=== PATIENT | female | born 1975 | race Caucasian/White ===

== ENCOUNTER 2018-11-20 16:19 | Emergency (ER) | payer SELFPAY ==
[2018-11-20 17:39] LABS: Urine Blood NEGATIVE (NEG); Urine Glucose NEGATIVE (NEG); Urine Protein NEGATIVE (NEG); Urine Specific Gravity 1.015 (1.005-1.030)
[2018-11-20] MEDS ORDERED: DOXYCYCLINE 100 MG CAP PO ONE (17:44)
[2018-11-20] MEDS ORDERED: FAMOTIDINE 20 MG TAB ONE (17:51)
--- NOTE | 2018-11-20 18:00 | EDPHYS ---
Physician Documentation [facility] Name: Joe Mullins Age: 43 yrs Sex: Female : 1975 Arrival Date: 11/20/2018 Time: 16:22 Bed 19 Private MD: ED Physician Nitin Vazquez HPI: 11/20 17:11 This 43 yrs old Female presents to ER via Ambulatory with complaints of snw Blurred Vision, Back Pain. 17:11 The patient's problem is reported as weakness, that is generalized. Onset: The snw symptoms/episode began/occurred suddenly, 3 day(s) ago, and became persistent. Duration: The episode is continuous. Context: occurred beach, occurred while the patient was standing, Possible contributing factors include: "my autoimmune is messed up". The symptoms are alleviated by nothing. Severity of symptoms: At their worst the symptoms were moderate. Patient's baseline: The patient has a previous history of difficulty with taking any medications, Pt has seen her PCP and was given Bactroban. Pt states she can't get through antibiotic course. . It is unknown whether or not the patient has had similar symptoms in the past. The patient has been recently seen by a physician: the patient's primary care provider. Encouraged pt to see a Border Patrol Agent. 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 - Social history:: Smoking status: Patient uses tobacco products, smokes one-half pack cigarettes per day. - Ebola Screening: : No symptoms or risks identified at this time. ROS: 17:14 Neck: Negative for injury, pain, and swelling, Cardiovascular: Negative for chest pain, snw palpitations, and edema, Respiratory: Negative for shortness of breath, cough, wheezing, and pleuritic chest pain, Abdomen/GI: Negative for abdominal pain, nausea, vomiting, diarrhea, and constipation, Back: Negative for injury and pain, : Negative for injury, bleeding, discharge, and swelling. 17:14 Neuro: Negative for headache, weakness, numbness, tingling, and seizure, Psych: Negative for depression, anxiety, suicide ideation, homicidal ideation, and hallucinations. 17:14 Constitutional: Positive for body aches, fatigue, fever, malaise, poor PO intake. 17:14 Eyes: Positive for visual disturbance. 17:14 ENT: Positive for stung by "deer fly" at the beach. 17:14 MS/extremity: Positive for tenderness, of the everywhere. 17:14 Skin: Positive for "I'm on fire". Exam: 17:16 Constitutional: This is a well developed, well nourished patient who is awake, alert, snw and in no acute distress, excessively anxious Head/Face: Normocephalic, atraumatic. Eyes: Pupils equal round and reactive to light, extra-ocular motions intact. Lids and lashes normal. Conjunctiva and sclera are non-icteric and not injected. Cornea within normal limits. Periorbital areas with no swelling, redness, or edema. 17:16 Neck: Trachea midline, no thyromegaly or masses palpated, and no cervical lymphadenopathy. Supple, full range of motion without nuchal rigidity, or vertebral point tenderness. No Meningismus. Chest/axilla: Normal chest wall appearance and motion. Nontender with no deformity. No lesions are appreciated. Cardiovascular: Regular rate and rhythm with a normal S1 and S2. No gallops, murmurs, or rubs. Normal PMI, no JVD. No pulse deficits. Respiratory: Lungs have equal breath sounds bilaterally, clear to auscultation and percussion. No rales, rhonchi or wheezes noted. No increased work of breathing, no retractions or nasal flaring. Abdomen/GI: Soft, non-tender, with normal bowel sounds. No distension or tympany. No guarding or rebound. No evidence of tenderness throughout. Back: No spinal tenderness. No costovertebral tenderness. Full range of motion. Skin: Warm, dry with normal turgor. Normal color with no rashes, no lesions, and no evidence of cellulitis. MS/ Extremity: Pulses equal, no cyanosis. Neurovascular intact. Full, normal range of motion. Neuro: Awake and alert, GCS 15, oriented to person, place, time, and situation. Cranial nerves II-XII grossly intact. Motor strength 5/5 in all extremities. Sensory grossly intact. Cerebellar exam normal. Normal gait. 17:16 ENT: Nose: External nose: erythematous dot to tip of nose. 17:16 ENT: Ear canal(s): are normal, TM's: are normal, Mouth: is normal, Voice: is normal. 17:16 Psych: Behavior/mood is anxious, Affect is animated, Oriented to person, place, time. 18:01 CT study not indicated or reported. Reason for not performing CT: Pt does not need CT, snw no injury, no LOC, no fever, + severe anxiety Vital Signs: 16:25 BP 153 / 99; Pulse 120; Resp 16; Temp 97.8; Pulse Ox 99% on R/A; Pain 8/10; hb MDM: 17:00 Patient medically screened. snw 18:00 Data reviewed: vital signs, nurses notes. Data interpreted: Pulse oximetry: on room air snw is 99 %. Interpretation: normal. Counseling: I had a detailed discussion with the patient and/or guardian regarding: the historical points, exam findings, and any diagnostic results supporting the discharge/admit diagnosis. Special discussion: I have referred the patient to see his PCP for further evaluation of high blood pressure. Based on the history and exam findings, there is no indication for further emergent testing or inpatient evaluation. I discussed with the patient/guardian the need to see the primary care provider for further evaluation of the symptoms. 11/20 16:51 Order name: Flu; Complete Time: 17:57 snw 11/20 17:06 Order name: Urine Dipstick-Ancillary (obtain specimen); Complete Time: 17:20 snw 11/20 17:27 Order name: Urine Dipstick--Ancillary (enter results); Complete Time: 17:42 em1 Administered Medications: 17:37 Drug: Doxycycline 100 mg Route: PO; tw2 18:10 Follow up: Response: No adverse reaction tw2 17:43 Drug: Pepcid 20 mg Route: PO; tw2 18:10 Follow up: Response: No adverse reaction tw2 Disposition: 11/21 06:33 Co-signature as Attending Physician, Nitin Vazquez MD I agree with the assessment and kdr plan of care. Disposition: 11/20/18 17:59 Discharged to Home. Impression: Anxiety disorder, unspecified, Insect bite (nonvenomous) of nose. - Condition is Stable. - Discharge Instructions: Insect Bite, Hypertension, Generalized Anxiety Disorder. - Prescriptions for Doxycycline Hyclate 100 mg Oral Tablet - take 1 tablet by ORAL route every 12 hours; 20 tablet. Prednisone 20 mg Oral Tablet - take 2 tablet by ORAL route once daily for 5 days; 10 tablet. - Medication Reconciliation Form, Thank You Letter, Antibiotic Education, Prescription Opioid Use form. - Follow up: Private Physician; When: 1 - 2 days; Reason: Recheck today's complaints, Continuance of care, Re-evaluation by your physician. Follow up: Emergency Department; When: As needed; Reason: Worsening of condition. - Problem is an acute exacerbation. - Symptoms are unchanged. Signatures: Dispatcher [employer] EDMS Nitin Vazquez MD MD [facility] Sena Morocho, AGUSTÍN-C PROJECT CONTROL ANALYST-Imtiazw Leonora Ponce, ALYSIA RN Merna Aguirre RN RN tw2 Corrections: (The following items were deleted from the chart) 11/20 18:10 17:59 11/20/2018 17:59 Discharged to Home. Impression: Anxiety disorder, unspecified; tw2 Insect bite (nonvenomous) of nose. Condition is Stable. Forms are Medication Reconciliation Form, Thank You Letter, Antibiotic Education, Prescription Opioid Use. Follow up: Private Physician; When: 1 - 2 days; Reason: Recheck today's complaints, Continuance of care, Re-evaluation by your physician. Follow up: Emergency Department; When: As needed; Reason: Worsening of condition. Problem is an acute exacerbation. Symptoms are unchanged. snw
--- NOTE | 2018-11-20 18:00 | ER ---
Nurse's Notes [facility] Name: Joe Mullins Age: 43 yrs Sex: Female : 1975 Arrival Date: 11/20/2018 Time: 16:22 Bed 19 Private MD: Diagnosis: Anxiety disorder, unspecified;Insect bite (nonvenomous) of nose Presentation: 11/20 16:24 Presenting complaint: Headache, nausea, malaise, and blurred vision after being stung hb by deer fly on nose last Sunday. Transition of care: patient was not received from another setting of care. Onset of symptoms was November 16, 2018. Risk Assessment: Do you want to hurt yourself or someone else? Patient reports no desire to harm self or others. Care prior to arrival: None. 16:24 Method Of Arrival: Ambulatory hb 16:24 Acuity: MIKE 4 hb 16:30 Initial Sepsis Screen: Does the patient meet any 2 criteria? No. Patient's initial tw2 sepsis screen is negative. Does the patient have a suspected source of infection? No. Patient's initial sepsis screen is negative. 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 - Social history:: Smoking status: Patient uses tobacco products, smokes one-half pack cigarettes per day. - Ebola Screening: : No symptoms or risks identified at this time. Screenin:30 Abuse screen: Denies threats or abuse. Nutritional screening: No deficits noted. tw2 Tuberculosis screening: No symptoms or risk factors identified. Fall Risk None identified. Assessment: 16:45 General: Appears in no apparent distress. Behavior is calm, cooperative, appropriate tw2 for age, Smells of alcohol. Pain: Complains of pain in back. Neuro: Level of Consciousness is awake, alert, obeys commands, Oriented to person, place, time, situation. Cardiovascular: Patient's skin is warm and dry. Respiratory: Airway is patent Respiratory effort is even, unlabored, Respiratory pattern is regular, symmetrical. GI: No signs and/or symptoms were reported involving the gastrointestinal system. : No signs and/or symptoms were reported regarding the genitourinary system. EENT: No signs and/or symptoms were reported regarding the EENT system. Derm: No signs and/or symptoms reported regarding the dermatologic system. Musculoskeletal: Reports pain in back. 17:45 Reassessment: Spoke to patient upon request. AFter speaking with patient she was ss requesting steroids to go home with to "beef up" her immune system so her body can handle the antibiotics. 18:10 Reassessment: Patient appears in no apparent distress at this time. No changes from tw2 previously documented assessment. Patient and/or family updated on plan of care and expected duration. Pain level reassessed. Patient is alert, oriented x 3, equal unlabored respirations, skin warm/dry/pink. Vital Signs: 16:25 BP 153 / 99; Pulse 120; Resp 16; Temp 97.8; Pulse Ox 99% on R/A; Pain 8/10; hb ED Course: 16:22 Patient arrived in ED. mr 16:25 Triage completed. hb 16:27 Arm band placed on right wrist. hb 16:29 Merna Aguirre, RN is Primary Nurse. tw2 16:31 Bed in low position. Call light in reach. Pulse ox on. NIBP on. tw2 16:38 [facility] Moroch[facility]C [facility] snw 16:38 Nitin Vazquez MD is Attending Physician. snw 17:14 Flu Sent. tw2 18:10 No provider procedures requiring assistance completed. Patient did not have IV access tw2 during this emergency room visit. Administered Medications: 17:37 Drug: Doxycycline 100 mg Route: PO; tw2 18:10 Follow up: Response: No adverse reaction tw2 17:43 Drug: Pepcid 20 mg Route: PO; tw2 18:10 Follow up: Response: No adverse reaction tw2 Outcome: 17:59 Discharge ordered by . snw 18:10 Discharged to home ambulatory. tw2 18:10 Condition: stable 18:10 Discharge instructions given to patient, Instructed on discharge instructions, follow up and referral plans. medication usage, Demonstrated understanding of instructions, follow-up care, medications, Prescriptions given X 2. 18:10 Patient left the ED. tw2 Signatures: Sena Morocho FNP-C FNP-Csnw Daniella YanNenita castelan, RN RN ss Leonora Ponce RN RN Merna Aguirre RN RN tw2 Corrections: (The following items were deleted from the chart) 16:24 Acuity: MIKE 3 hb hb 16:24 Onset of symptoms was November 20, 2018 hb hb
== END 2018-11-20 18:10 | disposition home or self-care (01) ==
LOC: ER 16:19
DX: S00.36XA Insect bite (nonvenomous) of nose, initial encounter (principal); W57.XXXA Bitten or stung by nonvenomous insect and other nonvenomous arthropods, initial encounter; Y92.832 Beach as the place of occurrence of the external cause; F41.9 Anxiety disorder, unspecified; H53.8 Other visual disturbances; M54.9 Dorsalgia, unspecified; R53.1 Weakness; F17.210 Nicotine dependence, cigarettes, uncomplicated; Z88.1 Allergy status to other antibiotic agents; Z88.0 Allergy status to penicillin
CPT/HCPCS: 81003; 87804; 99284

== ENCOUNTER 2018-11-25 10:56 | Emergency (ER) | payer SELFPAY ==
--- OUTSIDE RECORDS SUMMARY | 2018-11-25 10:59 | XMS REPORT | Continuity of Care Document ---
:1975 Author Organization Interface Problems Problem Status Onset Classification Date Comments Source Date Reported SINUSITIS Active Condition 12/05/2013 Medical 4 Group Abnormal EKG Active Diagnosis 10/26/2016 Ahmed Ahmed Abn. Cardio Active Diagnosis 10/26/2016 Ahmed Study Ahmed Precordial Active Diagnosis 10/26/2016 Ahmed pain Ahmed Shortness of Active Diagnosis 10/26/2016 Ahmed breath med Medications Medication Details Route Status Patient Ordering Order Source Instructions Provider Date GABAPENTIN 300 3 tabs 3 Active MG CAPS times per 2013 Medical day Group BACLOFEN 10 MG 1 tab 3 Active TABS times 2013 Medical daily Group NEXIUM 40 MG 1 tab Active PACK twice 2013 Medical daily Group CHLORPROMAZINE 1 tab Active HCL 25 MG TABS twice 2013 Medical daily Group PROVENTIL HFA 2 puffs 4 Active 108 (90 BASE) times 2013 Medical MCG/ACT AERS daily Group TYLENOL 2 tab Active ARTHRITIS PAIN every 6hrs 2013 Medical 650 MG CR-TABS Group TRAMADOL HCL 50 1 tab Active MG TABS every 6hrs 2013 Medical prn pain Group PREDNISONE 20 MG Two tabs Active TABS PO qday 2013 Medical for 3 Group days, then one tab PO qday for 2 days Hydrocodone as direct NA Active 5 Ahmed [facility] Sulfasalazine 1 tablet Orally Active 500 MG Orally med [facility] every 6 hrs [facility] Levothroid 1 tablet Orally Active 25 MCG Orally med [facility] on an Once a day Ahmed empty stomach in the morning Gabapentin (PHN) 1 tablet Orally Active 800 Orally [facility] with Three times a Ahmed evening day meal one time Baclofen as Intrathecal Active 10 MG/20ML Ahmed [facility] directed Intrathecal [facility] Nexium 1 capsule Orally Active 40 MG Orally [facility] Once a day [facility] Ondansetron as Orally Active 8 MG Orally [facility] directed [facility] Allergies, Adverse Reactions, Alerts Substance Category Reaction Severity Reaction Status Date Comments Source type Reported PENICILLIN Drug PENICILLIN allergy 4 Medical Group pencillin Adverse Info Not Adverse Active [facility] Reaction Available Reaction 4 [facility] Immunizations Immunization Date Given Site Status Last Updated Comments Source Results Order Results Value Reference Date Interpretation Comments Source Name Range Vital Signs Vital Sign Value Date Comments Source [facility] Diastolic (mm Hg) 86 02/17[facility] Systolic (mm Hg) 132 02/17/2014 [facility] Height 63.5 11/17/2013 Medical Group Weight 137 11/17/2013 Medical Group Temperature Oral (F) 97.9 F 11/17/2013 Medical Group Systolic (mm Hg) 139 11/17/2013 Medical Group Diastolic (mm Hg) 89 11/17/2013 Medical Group Heart Rate 100 11/17/2013 Medical Group Encounters Location Location Encounter Encounter Reason Attending ADM DC Status Source Details Type Number For Provider Date Date Visit [facility] Lab Report [id number] Eliana 12/05 12/05 [place] 040 Андрей, /2013 Medical Medical MD Group [facility] - [place] Dereje f/u NST, [id number] 02/17 02/17 Dereje Reyez MD, Echo, -[id number] Dereje PA [place] [id number] Procedures Procedure Code Date Perfomer Comments Source colonoscopy 62402 11/20/2013 Complete [facility] Group smoking/tobacco 14 11/17/2013 DONE Medical cessation, patient Group education and counseling
--- OUTSIDE RECORDS SUMMARY | 2018-11-25 10:59 | XMS REPORT ---
:1975 [facility] Providers Name Role Phone Dereje Reyez Provider Role Unavailable Allergies, Adverse Reactions, Alerts Substance Reaction Event Type pencillin Info Not Available Drug Allergy Encounters Encounter Location Date f/u NST, [place], [place] Dereje Reyez [place], [place] February 17, 2014 Problems Problem Type Condition ICD-9 Code Onset Dates Condition Status Assessment Abnormal EKG 794.31 Active Assessment Abn. Cardio Study 794.39 Active Assessment Precordial pain 786.51 Active Assessment Shortness of breath 786.05 Active Medications Medication Code System Code Instructions Start End Status Dosage Date Date Hydrocodone Unknown 0 5 Active as direct Sulfasalazine MEDISPAN 23665-45 500 MG Orally Active 1 tablet 96-01 every 6 hrs Levothroid MEDISPAN 47538-01 25 MCG Orally Active 1 tablet on 20-00 Once a day an empty stomach in the morning Gabapentin (PHN) Unknown 0 800 Orally Active 1 tablet Three times a with day evening meal one time Baclofen MEDISPAN 12137-53 10 MG/20ML Active as directed 60-01 Intrathecal Nexium MEDISPAN 22008-81 40 MG Orally Active 1 capsule 40-31 Once a day Ondansetron MEDISPAN 74640-36 8 MG Orally Active as directed 02-03 Social History Social History Element Qualifiers Date Reported Smoking: . Are you a: Current smoker, How many packs per February 17, 2014 day? 1-2 packs Alcohol: . None February 17, 2014 Family history Qualifier Description Comment Date Reported Maternal Grand Mother heart attack February 17, 2014 Paternal Grand Mother alive Comment not available February 17, 2014 Siblings alive Comment not available February 17, 2014 Maternal Grand Father heart attack February 17, 2014 Children alive Comment not available February 17, 2014 Father alive cancer February 17, 2014 Paternal Grand Father Comment not available February 17, 2014 Mother alive heart disease, high blood pressure,, February 17, 2014 heart attack Vital Signs Date/Time: February 17, 2014 Weight 140 lbs Cardiac Monitoring Heart Rate 92 /min Blood Pressure Diastolic 86 mm Hg Blood Pressure Systolic 132 mm Hg Summary Purpose eClinicalWorks Submission
--- OUTSIDE RECORDS SUMMARY | 2018-11-25 10:59 | XMS REPORT ---
:1975 [facility] Address [address] [place] [address] Care Team Providers Name Role Phone Unavailable Unavailable Unavailable Payers Payer Name Policy Type Policy Number Effective Date Expiration Date Problems This patient has no known problems. Allergies, Adverse Reactions, Alerts Allergy Name Allergy Status Severity Reaction(s) Onset Inactive Treating Comments Type Date Date Clinician Fish Containing DA Active U 2017-09 Products 0-24 00:00: 00 levothyroxine DA Active U 2017-09 sodium 0-24 00:00: 00 ibuprofen DA Active U 2017-09 0-24 00:00: 00 azithromycin DA Active U 2017-09 0-24 00:00: 00 nut - DA Active U 2017-09 unspecified 0-24 00:00: 00 Penicillins DA Active SV 2017-09 0-24 00:00: 00 Penicillins DA Active SV 2010-09- 00:00: 00 Medications This patient has no known medications.
--- OUTSIDE RECORDS SUMMARY | 2018-11-25 10:59 | XMS REPORT | Continuity of Care Document ---
:1975 Author Organization [facility] Care Team Providers Name Role Phone MD Андрей, Eliana Unavailable Unavailable Insurance Providers Payer name Policy type / Policy ID Covered republican ID Policy Rizvi Coverage type [facility] Encounters Encounter Performer Location Date Lab Report Eliana Chiang MD [facility] [place] Dec 05, 2013 Allergies, Adverse Reactions, Alerts Type Substance Reaction Status Drug allergy PENICILLIN Hives Active Problems Problem Effective Dates Problem Status SINUSITIS Nov 17, 2013 Active Procedures Date Description Comments Nov 17, 2013 smoking status current every day smoker Nov 20, 2013 colonoscopy Complete Nov 17, 2013 smoking/tobacco cessation, patient education DONE and counseling Medications Medication Instructions Start Date Status GABAPENTIN 300 MG CAPS 3 tabs 3 times per day Nov 17, 2013 Active BACLOFEN 10 MG TABS 1 tab 3 times daily Nov 17, 2013 Active NEXIUM 40 MG PACK 1 tab twice daily Nov 17, 2013 Active CHLORPROMAZINE HCL 25 MG TABS 1 tab twice daily Nov 17, 2013 Active PROVENTIL HFA 108 (90 BASE) 2 puffs 4 times daily Nov 17, 2013 Active MCG/ACT AERS TYLENOL ARTHRITIS PAIN 650 MG 2 tab every 6hrs Nov 17, 2013 Active CR-TABS TRAMADOL HCL 50 MG TABS 1 tab every 6hrs prn pain Nov 17, 2013 Active PREDNISONE 20 MG TABS Two tabs PO qday for 3 days, Nov 17, 2013 Active then one tab PO qday for 2 days Vital Signs Date Description Test Result Nov 17, 2013 height E&M - 8302-2 HEIGHT 63.5 in Nov 17, 2013 weight E&M - 3141-9 WEIGHT 137 lb Nov 17, 2013 temperature E&M TEMPERATURE 97.9 deg f Nov 17, 2013 blood pressure, systolic - 8480-6 BP SYSTOLIC 139 mm Hg Nov 17, 2013 blood pressure, diastolic - 8462-4 BP DIASTOLIC 89 mm Hg Nov 17, 2013 pulse rate E&M - 8867-4 PULSE RATE 100 /min
--- OUTSIDE RECORDS SUMMARY | 2018-11-25 10:59 | XMS REPORT | Summary of Care ---
:1975 Author Name VERONICA COY M.D. Address Unavailable Unavailable , Care Team Providers Name Role Phone ANJU Granados, CAITIE Unavailable Unavailable VERONICA COY M.D. Unavailable Unavailable Caitie Rene MD Unavailable Unavailable HUE JARA MD Unavailable Unavailable Unavailable Unavailable Unavailable Functional Status Name Dates Details Functional status health issues are not documented Status: Name Dates Details Cognitive status health issues are not documented Status: Problems Name Dates Details GERD (gastroesophageal reflux disease) (530.81, K21.9) Status: Active Pain of left upper extremity (729.5, M79.602) Status: Active Pain, elbow joint (719.42, M25.529) Status: Active Lateral epicondylitis of left elbow (726.32, M77.12) Status: Active Thyroid nodule (241.0, E04.1) Status: Active Chronic viral hepatitis C (070.54, B18.2) Status: Active Myalgia (729.1, M79.1) Status: Active Pain, joint, multiple sites (719.49, M25.50) Status: Active Sorethroat (462, J02.9) Status: Active Nausea (787.02, R11.0) Status: Active Exposure to MRSA (V01.89, Z20.818) Status: Active Viral URI with cough (465.9, J06.9) Status: Active Hypothyroidism (244.9, E03.9) Status: Active Medications Name Dates Details NexIUM 20 MG Oral Capsule Delayed Release Refills: 0 Active Multivitamins Oral Capsule Refills: 0 Active Gabapentin 300 MG Oral Capsule takes 600 mg hs Refills: 0 Active Tirosint 50 MCG Oral Capsule TAKE 1 CAPSULE DAILY Quantity: 90 Refills: 1 VERONICA CYO M.D. Start : 13-Dec-2016 Active Albuterol Sulfate HFA AERS Refills: 0 Active Symbicort AERO Refills: 0 Active MethylPREDNISolone 4 MG Oral Tablet Therapy Pack TAKE DIRECTED Quantity: 1 Refills: 0 RENE M.D., TREPANJEET Start : 16-Mar-2017 Active 21 Tablet Pack Cyclobenzaprine HCl - 10 MG Oral Tablet TAKE 1 TABLET BEDTIME po,donot drive or operate machinery Quantity: 30 Refills: 0 RENE M.D., TREPANJEET Start : 16-Mar-2017 Active Ondansetron HCl - 8 MG Oral Tablet TAKE 1 TABLET EVERY 8 HOURS PRN nausea/vomiting Quantity: 20 Refills: 0 RENE M.D., TREPANJEET Start : 07-May-2017 Active Allergies and Adverse Reactions Name Dates Details Advil TABS (Allergy) Status: Active Amitriptyline HCl TABS (Allergy) Status: Active Ibuprofen TABS (Allergy) Status: Active levothyroxine (Allergy) Status: Active Penicillins (Allergy) Status: Active Zithromax PACK (Allergy) Status: Active Almonds (Allergy) Status: Active Seafood (Allergy) Status: Active Shellfish (Allergy) Status: Active Shrimp (Allergy) Status: Active Past Medical History Name Dates Details Hypothyroidism (244.9, E03.9) Status: Active Procedures Procedure Dates Details History of Section Completed History of Exploratory Laparotomy Completed History of Total Abdominal Hysterectomy Completed History of Salpingo-oophorectomy Bilateral Completed History of Neck Surgery Completed Immunization Name Dates Details Immunizations not documented Family History Name Dates Details Family history of hypertension (V17.49, Z82.49) Status: Active Family history of diabetes mellitus (V18.0, Z83.3) Status: Active Family history of Heart abnormality (746.9, Q24.9) Status: Active Name Dates Details Family history of skin cancer (V16.8, Z80.8) Status: Active Social History Name Dates Details - Status: Name Dates Details Current every day smoker Vital Signs Date Test Result Details No Known Vitals to report Results Date Description Value Details [id number] [[facility]] T3, FREE T3 Free 2.50 pg/ml Range: 2.18-3.98 [id number] [[facility]] T4, FREE T4 Free 1.04 ng/dl Range: 0.76-1.46 [id number] [[facility]] TSH, 3RD GENERATION TSH 2.100 {uIU/ml} Range: 0.360-3.740 Plan of Care Name Dates Details Planned Observations Planned Goals not documented Planned Encounters Appointment; VERONICA COY M.D. On: 07-Nov-2017 15:20 Interventions Provided Discussion/Summary1.Hypothyroidism ( Juan R's)Target TSH <2.5 explainedIncrease Tirosint 50 mcg po daily (could not tolerate generic levothyroxine)Check TSH, FT4, FT3 in 2 monthsFU in 2 months2. Hx of thyroid noduleRepeat USG thyroid in 10/2016, no nodule identified3. Headache most likely tension headache, not related to her thyroid status. Advised to FU with PCP. Instructions Name Dates Details Instructions not documented Encounters Appointment; RUDOLPH WHITFIELD M.D. On: 24-Oct-2016 13:00 Encounter Diagnosis: Problem not documented Appointment; RUDOLPH WHITFIELD M.D. On: 18-Jan-2017 15:30 Encounter Diagnosis: Problem not documented Appointment; RUDOLPH WHITFIELD M.D. On: 22-Feb-2017 13:40 Encounter Diagnosis: Problem not documented Appointment; RUDOLPH WHITFIELD M.D. On: 22-Feb-2017 13:45 Encounter Diagnosis: Problem not documented Appointment; RUDOLPH WHITFIELD M.D. On: 06-Mar-2017 9:45 Encounter Diagnosis: Problem not documented Appointment; CAITIE RENE M.D. On: 16-Mar-2017 15:00 Encounter Diagnosis: Problem not documented Appointment; VERONICA COY M.D. On: 16-Apr-2017 11:20 Encounter Diagnosis: Problem not documented Appointment; CAITIE RENE M.D. On: 07-May-2017 15:20 Encounter Diagnosis: Problem not documented Appointment; VERONICA COY M.D. On: 30-Jul-2017 10:40 Encounter Diagnosis: Problem not documented Appointment; VERONICA COY M.D. On: 07-Nov-2017 15:20 Encounter Diagnosis: Problem not documented
[2018-11-25] MEDS ORDERED: NA CHLORIDE 0.9% 100 ML IV ONE (12:30)
[2018-11-25] MEDS ORDERED: DEXAMETHASONE 4 MG/ML VIAL ONE (12:30)
[2018-11-25] MEDS ORDERED: IPRATROPIUM BROM 0.5MG/2.5ML ONE (12:30)
[2018-11-25] MEDS ORDERED: ALBUTEROL 2.5 MG/3 ML NEB SOL ONE (12:30)
[2018-11-25 13:11] LABS: Absolute Lymphocytes (CBC) 4.1 K/uL (0.7-4.9); Absolute Monocytes 0.9 K/uL (0.1-1.3); Absolute Neutrophil 10.3 K/uL (1.8-8.0); Basophils % 1.1 % (0-1.3); Eosinophils % 0.3 % (0-4.4); Hematocrit 44.8 % (36.0-45.0); Lymphocytes % 26.6 % (15.3-44.8); MPV 12.4 fL (7.6-11.3); Monocytes % 5.6 % (3.3-12.3); RBC Red Blood Cell Count 4.84 M/uL (3.86-4.86)
[2018-11-25 13:23] LABS: Potassium 3.3 mmol/L (3.5-5.1)
--- NOTE | 2018-11-25 13:37 | RAD REPORT ---
EXAM DESCRIPTION: Lesa Finn (2 Views)11/25/2018 1:32 pm CLINICAL HISTORY: Cough COMPARISON: None FINDINGS: The lungs appear clear of acute infiltrate. The heart is normal size IMPRESSION: No acute abnormalities displayed
--- NOTE | 2018-11-25 14:10 | RAD REPORT ---
EXAM DESCRIPTION: RAD - Neck Soft Tissue - 11/25/2018 1:35 pm CLINICAL HISTORY: Congestion FINDINGS: the visualized airway appears unremarkable. Aryepiglottic folds normal Prevertebral soft tissues are unremarkable. Spondylosis involves lower cervical spine.
[2018-11-25] MEDS ORDERED: KETOROLAC 30 MG/ML INJ ONE (14:28)
--- NOTE | 2018-11-25 14:41 | EDPHYS ---
Physician Documentation [facility] Name: Joe Mullins Age: 43 yrs Sex: Female : 1975 Arrival Date: 11/25/2018 Time: 11:03 Bed 8 Private MD: ED Physician Aquiles Dickinson HPI: 11/25 16:51 This 43 yrs old Female presents to ER via Ambulatory with complaints of gs Weakness. 16:51 The patient presents to the emergency department with weakness of the entire body, gs generalized weakness. Onset: The symptoms/episode began/occurred gradually. 16:52 Onset: The symptoms/episode began/occurred 1.5 week(s) ago. Associated signs and gs symptoms: Pertinent positives: headache, nausea, paresthesias. Severity of symptoms: At their worst the symptoms were moderate in the emergency department the symptoms are unchanged. Current symptoms: visual disturbance. The patient has experienced similar episodes in the past, several times. The patient has been recently seen at the [facility] Emergency Department, last week. 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 - Social history:: Smoking status: Patient uses tobacco products, smokes one-half pack cigarettes per day. - Ebola Screening: : No symptoms or risks identified at this time. ROS: 16:52 All other systems are negative. gs Exam: 16:52 Head/Face: Normocephalic, atraumatic. Eyes: Pupils equal round and reactive to light, gs extra-ocular motions intact. Lids and lashes normal. Conjunctiva and sclera are non-icteric and not injected. Cornea within normal limits. Periorbital areas with no swelling, redness, or edema. ENT: Nares patent. No nasal discharge, no septal abnormalities noted. Tympanic membranes are normal and external auditory canals are clear. Oropharynx with no redness, swelling, or masses, exudates, or evidence of obstruction, uvula midline. Mucous membranes moist. Neck: Trachea midline, no thyromegaly or masses palpated, and no cervical lymphadenopathy. Supple, full range of motion without nuchal rigidity, or vertebral point tenderness. No Meningismus. Chest/axilla: Normal chest wall appearance and motion. Nontender with no deformity. No lesions are appreciated. Cardiovascular: Regular rate and rhythm with a normal S1 and S2. No gallops, murmurs, or rubs. Normal PMI, no JVD. No pulse deficits. Abdomen/GI: Soft, non-tender, with normal bowel sounds. No distension or tympany. No guarding or rebound. No evidence of tenderness throughout. Back: No spinal tenderness. No costovertebral tenderness. Full range of motion. Skin: Warm, dry with normal turgor. Normal color with no rashes, no lesions, and no evidence of cellulitis. MS/ Extremity: Pulses equal, no cyanosis. Neurovascular intact. Full, normal range of motion. Neuro: Awake and alert, GCS 15, oriented to person, place, time, and situation. Cranial nerves II-XII grossly intact. Motor strength 5/5 in all extremities. Sensory grossly intact. Cerebellar exam normal. Normal gait. 16:52 Constitutional: The patient appears alert, awake, anxious. 16:52 Respiratory: the patient does not display signs of respiratory distress, Respirations: normal, symetrical, Breath sounds: wheezing: expiratory that is mild, is heard diffusely. Vital Signs: 11:27 BP 150 / 95; Pulse 80; Resp 18 S; Temp 98.4(TE); Pulse Ox 99% on R/A; Weight 55.34 kg aa5 (R); Height 5 ft. 3 in. (160.02 cm) (R); Pain 8/10; 12:40 BP 146 / 78; Pulse 84; Pulse Ox 98% on R/A; ch 14:20 BP 136 / 89; Pulse 78; Resp 16; Temp 98.8; Pulse Ox 98% on R/A; Pain 9/10; ch 15:45 BP 147 / 86; Pulse 76; Resp 15; Temp 97.9; Pulse Ox 99% on R/A; Pain 6/10; ch 11:27 Body Mass Index 21.61 (55.34 kg, 160.02 cm) aa5 MDM: 12:14 Patient medically screened. 16:52 Data reviewed: vital signs, nurses notes. Counseling: I had a detailed discussion with the patient and/or guardian regarding: the historical points, exam findings, and any diagnostic results supporting the discharge/admit diagnosis, lab results, the need for outpatient follow up. Response to treatment: the patient's symptoms have markedly improved after treatment, the patient's symptoms have resolved after treatment, and as a result, I will discharge patient. 11/25 12:15 Order name: CBC with Diff; Complete Time: 13:58 11/25 12:15 Order name: Basic Metabolic Panel; Complete Time: 13:58 11/25 12:15 Order name: XRAY Chest Pa And Lat (2 Views); Complete Time: 13:58 11/25 12:15 Order name: Neck Soft Tissue XRAY; Complete Time: 14:11 Administered Medications: 12:25 Drug: Albuterol 2.5 mg Route: Inhalation; 16:18 Follow up: Response: No adverse reaction; Marked relief of symptoms ch 12:25 Drug: AtroVENT Aerosol 0.5 mg Route: Inhalation; ch 16:18 Follow up: Response: No adverse reaction; Marked relief of symptoms 12:40 Drug: Decadron - Dexamethasone 10 mg Route: IVP; Site: left upper arm; 13:00 Follow up: Response: No adverse reaction ch 14:15 Drug: TORadol 15 mg Route: IVP; Site: left antecubital; 15:00 Follow up: Response: No adverse reaction; No change in condition Disposition: 11/25/18 14:41 Discharged to Home. Impression: Insect bite (nonvenomous) of other part of head, Fibromyalgia. - Condition is Stable. - Discharge Instructions: Myofascial Pain Syndrome and Fibromyalgia. - Prescriptions for Tylenol- Codeine #4 300-60 mg Oral Tablet - take 1 tablet by ORAL route every 6 hours As needed; 10 tablet. - Medication Reconciliation Form, Thank You Letter, Antibiotic Education, Prescription Opioid Use form. - Follow up: Private Physician; When: 2 - 3 days; Reason: Re-evaluation by your physician. Follow up: Pasquale Hernandez MD; When: 2 - 3 days; Reason: Re-evaluation by your physician. Signatures: Dispatcher [employer] Denisa Overton RN ALYSIA Sulema Montgomery RN RN aa5 Nenita Leal RN RN Aquiles Dickinson MD MD gs Corrections: (The following items were deleted from the chart) 14:41 14:41 11/25/2018 14:41 Discharged to Home. Impression: Insect bite (nonvenomous) of gs other part of head; Fibromyalgia. Condition is Stable. Forms are Medication Reconciliation Form, Thank You Letter, Antibiotic Education, Prescription Opioid Use. Follow up: Private Physician; When: 2 - 3 days; Reason: Re-evaluation by your physician. 15:54 14:41 11/25/2018 14:41 Discharged to Home. Impression: Insect bite (nonvenomous) of ch other part of head; Fibromyalgia. Condition is Stable. Discharge Instructions: Myofascial Pain Syndrome and Fibromyalgia. Prescriptions for Tylenol-Codeine #4 300-60 mg Oral Tablet - take 1 tablet by ORAL route every 6 hours As needed; 10 tablet. and Forms are Medication Reconciliation Form, Thank You Letter, Antibiotic Education, Prescription Opioid Use. Follow up: Private Physician; When: 2 - 3 days; Reason: Re-evaluation by your physician. Follow up: Pasquale Hernandez; When: 2 - 3 days; Reason: Re-evaluation by your physician.
--- NOTE | 2018-11-25 14:41 | ER ---
Nurse's Notes [facility] Name: Joe Mullins Age: 43 yrs Sex: Female : 1975 Arrival Date: 11/25/2018 Time: 11:03 Bed 8 Private MD: Diagnosis: Insect bite (nonvenomous) of other part of head;Fibromyalgia Presentation: 11/25 11:21 Presenting complaint: Patient states: "I was bitten by a deer fly on my nose and aa5 prescribed Bactrim and later I came here and was prescribed Doxycycline and Prednisone". Pt reports she is still taking the doxycycline and she completed the prednisone. Pt states "all my glands in my body hurt and I feel weak". Pt also c/o nausea. Pt states "the deer fly bite is attacking my body and all this symptoms are caused by it". Transition of care: patient was not received from another setting of care. Onset of symptoms was November 2018. Risk Assessment: Do you want to hurt yourself or someone else? Patient reports no desire to harm self or others. Initial Sepsis Screen: Does the patient meet any 2 criteria? No. Patient's initial sepsis screen is negative. Does the patient have a suspected source of infection? No. Patient's initial sepsis screen is negative. Care prior to arrival: None. 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 - Social history:: Smoking status: Patient uses tobacco products, smokes one-half pack cigarettes per day. - Ebola Screening: : No symptoms or risks identified at this time. Screenin:45 Abuse screen: Denies threats or abuse. Denies injuries from another. Nutritional ch screening: No deficits noted. Tuberculosis screening: No symptoms or risk factors identified. Fall Risk None identified. Assessment: 12:20 Neuro: Level of Consciousness is awake, alert, obeys commands, Oriented to person, ch place, time, situation, Sales Donor Recruitment Representative are equal bilaterally Moves all extremities. Full function Gait is steady, Speech is normal, Facial symmetry appears normal, Facial symmetry: tongue is midline, Pupils are PERRLA, Reports pt states she is having generalized weakness and tingling all over body. states her blood is poisoned, and she has been contaminated by the bit of a deer fly that fed off of a decayed contaminated deer 8 days ago. pt states we are not taking her seriously, and appears anxious and agitated in room. . Respiratory: Airway is patent Trachea midline Respiratory effort is even, unlabored, Breath sounds are clear bilaterally. pt is having upper airway "tightness", and having coarse breathing when staff is in room. when staff is not in room, pt has quiet unlabored breathing, and is on her phone, resting quietly. GI: No signs and/or symptoms were reported involving the gastrointestinal system. Derm: Skin is pink, warm \\T\\ dry. no blisters or wounds noted at this time. 14:20 Reassessment: Patient is alert, oriented x 3, equal unlabored respirations, skin ch warm/dry/pink. erp in room discussing plan of care with pt and negative results. pt is tear full in room and insisting she is having an inflammatory reaction, and needs antiinflammatory. pt states she knows her body and is in some of the worst pain of her life, her blood must be poisoned. erp dicusses results with pt and follow up care. pt insists she needs pain medication. General: Appears in no apparent distress. uncomfortable, Behavior is agitated, anxious. Pain: Complains of pain in generalized, also in throat Pain currently is 8 out of 10 on a pain scale. Cardiovascular: Heart tones S1 S2 present Capillary refill < 3 seconds in bilateral fingers toes Clubbing of nail beds is absent Rhythm is regular. 15:30 Reassessment: Patient appears in no apparent distress at this time. Patient is alert, ch oriented x 3, equal unlabored respirations, skin warm/dry/pink. 15:45 Reassessment: Patient appears in no apparent distress at this time. Patient is alert, ch oriented x 3, equal unlabored respirations, skin warm/dry/pink. pt states she called her hand winder and he said doxycycline is "deactivated" by tylenol with codeine. pt requests tramadol . pt refuses to leave until she has her orders. pt dx explained by me again, [facility], follow up. pt verb understanding, states she is grateful for our care, pt given copy of labs. Vital Signs: 11:27 BP 150 / 95; Pulse 80; Resp 18 S; Temp 98.4(TE); Pulse Ox 99% on R/A; Weight 55.34 kg aa5 (R); Height 5 ft. 3 in. (160.02 cm) (R); Pain 8/10; 12:40 BP 146 / 78; Pulse 84; Pulse Ox 98% on R/A; ch 14:20 BP 136 / 89; Pulse 78; Resp 16; Temp 98.8; Pulse Ox 98% on R/A; Pain 9/10; ch 15:45 BP 147 / 86; Pulse 76; Resp 15; Temp 97.9; Pulse Ox 99% on R/A; Pain 6/10; ch 11:27 Body Mass Index 21.61 (55.34 kg, 160.02 cm) aa5 ED Course: 11:03 Patient arrived in ED. mr 11:21 Arm band placed on. aa5 11:25 Triage completed. aa5 11:30 Patient has correct armband on for positive identification. Placed in gown. Bed in low ch position. Call light in reach. Side rails up X 1. Pulse ox on. NIBP on. 11:30 Warm blanket given. ch 12:07 Aquiles Dickinson MD is Attending Physician. gs 12:35 Inserted saline lock: 22 gauge in left upper arm, using aseptic technique. Missed ch attempt(s): 20 gauge in right antecubital area. Bleeding controlled, band aid applied, catheter tip intact. 12:39 Denisa Hawthorne, ALYSIA is Primary Nurse. ch 13:20 Patient moved to radiology via wheelchair. jb2 13:32 X-ray completed. Patient tolerated procedure well. Patient moved back from radiology. jb2 13:33 Neck Soft Tissue XRAY In Process Unspecified. EDMS 13:33 XRAY Chest Pa And Lat (2 Views) In Process Unspecified. EDMS 14:41 David, Pasquale, MD is Referral Physician. gs 15:30 No provider procedures requiring assistance completed. IV discontinued, intact, ch bleeding controlled, No redness/swelling at site. Pressure dressing applied. Administered Medications: 12:25 Drug: Albuterol 2.5 mg Route: Inhalation; ch 16:18 Follow up: Response: No adverse reaction; Marked relief of symptoms ch 12:25 Drug: AtroVENT Aerosol 0.5 mg Route: Inhalation; ch 16:18 Follow up: Response: No adverse reaction; Marked relief of symptoms ch 12:40 Drug: Decadron - Dexamethasone 10 mg Route: IVP; Site: left upper arm; ch 13:00 Follow up: Response: No adverse reaction ch 14:15 Drug: TORadol 15 mg Route: IVP; Site: left antecubital; 15:00 Follow up: Response: No adverse reaction; No change in condition ch Outcome: 14:41 Discharge ordered by MD. 15:52 Discharged to home ambulatory. 15:52 Condition: improved 15:52 Discharge instructions given to patient, Instructed on discharge instructions, follow up and referral plans. medication usage, Demonstrated understanding of instructions, follow-up care, medications, Prescriptions given X 1. 15:54 Patient left the ED. Signatures: Dispatcher [employer] EDMS Denisa Hawthorne RN RN Yan Daniella Rivera, Sulema Colunga RN RN aa5 Smirch, Shelby, RN RN ss Starr, Gregory, MD MD Corrections: (The following items were deleted from the chart) 11:29 11:21 Presenting complaint: Patient states: "I was bitten by a deer fly and prescribed aa5 Bactrim and later I came here and was prescribed Doxycycline and Prednisone". Pt reports she is still taking the doxycycline and she completed the prednisone. Pt states "all my glands in my body hurt and I feel weak". Pt also c/o nausea. aa5 16:19 14:20 Reassessment: Patient is alert/active/playful, equal unlabored respirations, skin ch warm/dry/pink. erp in room discussing plan of care with pt and negative results. pt is tear full in room and insisting she is having an inflammatory reaction, and needs antiinflammatory. pt states she knows her body and is in some of the worst pain of her life, her blood must be poisoned. erp dicusses results with pt and follow up care. pt insists she needs pain medication. 16:19 16:18 Reassessment: Patient appears in no apparent distress at this time. Patient is ch alert, oriented x 3, equal unlabored respirations, skin warm/dry/pink. ch 19:16 16:31 Reassessment: Patient appears in no apparent distress at this time. pt finished ch food, took pain pill, attempting to call report now. 19:17 16:30 Reassessment: Patient appears in no apparent distress at this time. Patient is ch alert, oriented x 3, equal unlabored respirations, skin warm/dry/pink. pt states she called her hand winder and he said doxycycline is "deactivated" by tylenol with codeine. pt requests tramadol .
== END 2018-11-25 15:54 | disposition home or self-care (01) ==
LOC: ER 10:56
DX: S00.96XA Insect bite (nonvenomous) of unspecified part of head, initial encounter (principal); W57.XXXA Bitten or stung by nonvenomous insect and other nonvenomous arthropods, initial encounter; M79.7 Fibromyalgia; R53.1 Weakness; B19.20 Unspecified viral hepatitis C without hepatic coma; Z88.1 Allergy status to other antibiotic agents; Z88.0 Allergy status to penicillin; Z88.8 Allergy status to other drugs, medicaments and biological substances; F17.210 Nicotine dependence, cigarettes, uncomplicated
CPT/HCPCS: 36415; 70360; 71046; 80048; 85025; 99284

== ENCOUNTER 2021-06-27 12:18 | Emergency (ER) | payer OTHER, SELFPAY ==
[2021-06-27 13:20] LABS: Absolute Lymphocytes (CBC) 2.3 K/uL (0.7-4.9); Basophils % 1.1 % (0-1.3); Hematocrit 40.9 % (36.0-45.0); Lymphocytes % 36.8 % (15.3-44.8); MPV 10.9 fL (7.6-11.3); RBC Red Blood Cell Count 4.44 M/uL (3.86-4.86)
[2021-06-27 13:23] LABS: Protime INR 1.01
[2021-06-27 13:30] LABS: BUN Blood Urea Nitrogen 14 mg/dL (7-18); Bicarbonate 26 mmol/L (21-32); Glucose Level 101 mg/dL (74-106); Potassium 3.8 mmol/L (3.5-5.1); Sodium Level 141 mmol/L (136-145)
[2021-06-27] MEDS ORDERED: MAGNES/ALUMIN/SIMET 30ML UCUP ONE (13:51)
[2021-06-27] MEDS ORDERED: LIDOCAINE VISCOUS 2% SOLN 15 ML UDC ONE (13:51)
--- NOTE | 2021-06-27 13:52 | RAD REPORT ---
EXAM DESCRIPTION: CTAbdomen Pelvis Wo Contrast - 06/27/2021 1:40 pm CLINICAL HISTORY: . rectal bleeding, ;Abd pain COMPARISON: CT-STONE PROTOCOL dated 04/27/2008 TECHNIQUE: All CT scans are performed using dose optimization technique as appropriate and may inclu de automated exposure control or mA/KV adjustment according to patient size. FINDINGS: Lower chest: No acute abnormality. Liver: No acute abnormality or suspicious lesions. Biliary: No biliary ductal dilatation. Cholecystectomy Stomach: No significant focal abnormality. Duodenum: No significant focal abnormality. Pancreas: No significant abnormality. Spleen: No significant abnormality. Adrenal: No suspicious lesions. Kidney/ureter: No hydronephrosis. No renal calculi. Retroperitoneum: No retroperitoneal adenopathy. Vascular: No aneurysm. Mild atherosclerosis . Bowel: No significant focal abnormality. Peritoneum: No ascites or free air. Bladder: Grossly unremarkable. Reproductive: No adnexal masses. Hysterectomy Bones: No acute fracture. Other: n/a IMPRESSION: No acute intra-abdominal or pelvic finding.
--- NOTE | 2021-06-27 14:14 | EDPHYS ---
Physician Documentation [facility] Name: Joe Mullins Age: 45 yrs Sex: Female : 1975 Arrival Date: 06/27/2021 Time: 12:23 Bed 19 Private MD: ED Physician Ramiro Martinez HPI: 06/27 12:46 This 45 yrs old Female presents to ER via Ambulatory with complaints of rn Rectal Bleeding, Abdominal Pain. 12:46 The patient presents to the emergency department with bleeding from the rectum/anus, rn that is mild. Onset: The symptoms/episode began/occurred 2 month(s) ago. Context: the patient has no known special context relating to the rectal area complaint(s). Modifying factors: The symptoms are alleviated by nothing, The symptoms are aggravated by bowel movement. Associate signs and symptoms: Pertinent positives: abdominal pain in the abdomen diffusely, lower GI bleeding, bright red. The patient has experienced similar episodes in the past. The patient has not recently seen a physician. Patient reports at least 2 months of diffuse abdominal pain and mild bright red rectal bleeding. Denies any fever or trauma. States this is happened before and put on antacids with improvement. States did not want to alarm anybody so not ago this long. Reports only happens with bowel movements and does not have bowel movements every day. Denies hematemesis. Denies taking blood thinners. Has not tried any [id number] medication. States he does not have any money for any medication or follow-up so came here.. Historical: - Allergies: 12:27 Diflucan; hb 12:27 Levothyroxine Sodium; hb 12:27 PENICILLINS; hb 12:27 Zithromax; hb 13:00 Iodinated Contrast Media - IV Dye; tc5 - PMHx: 12:27 Asthma; HEP C; Thyroid problem; hb - Immunization history:: Client reports having NOT received the Covid vaccine. - Social history:: Smoking status: Patient reports the use of cigarette tobacco products, smokes one-half pack cigarettes per day. - Family history:: not pertinent. - Hospitalizations: : No recent hospitalization is reported. ROS: 12:46 Constitutional: Negative for fever, chills, and weight loss, Eyes: Negative for injury, rn pain, redness, and discharge, Neck: Negative for injury, pain, and swelling, Cardiovascular: Negative for chest pain, palpitations, and edema, Respiratory: Negative for shortness of breath, cough, wheezing, and pleuritic chest pain, Abdomen/GI: Positive for abdominal pain and bright red blood in stool Back: Negative for injury and pain, : Negative for injury, bleeding, discharge, and swelling, MS/Extremity: Negative for injury and deformity, Skin: Negative for injury, rash, and discoloration, Neuro: Negative for headache, weakness, numbness, tingling, and seizure. Exam: 12:46 Constitutional: This is a well developed, well nourished patient who is awake, alert, rn and in no acute distress. Head/Face: Normocephalic, atraumatic. Eyes: Conjunctiva normal. Periorbital areas with no swelling, redness, or edema. Cardiovascular: Regular rate and rhythm. No pulse deficits. Respiratory: No increased work of breathing, no retractions or nasal flaring. Abdomen/GI: Soft, mild tenderness in all 4 quadrants, no masses, no peritoneal signs Skin: Warm, dry MS/ Extremity: Pulses equal, no cyanosis. Neuro: Awake and alert, GCS 15 Vital Signs: 12:25 BP 137 / 78; Pulse 90; Resp 16; Temp 97.0; Pulse Ox 99% on R/A; Weight 57.61 kg; Height hb 5 ft. 3 in. (160.02 cm); Pain 8/10; 14:57 BP 137 / 79; Pulse 65; Resp 18; Pulse Ox 97% ; tc5 12:25 Body Mass Index 22.50 (57.61 kg, 160.02 cm) hb MDM: 12:28 Patient medically screened. rn 14:12 Differential diagnosis: Abdominal pain, acid reflux, diverticulitis. Data reviewed: rn vital signs, nurses notes, lab test result(s), radiologic studies, CT scan, and as a result, I will discharge patient. Counseling: I had a detailed discussion with the patient and/or guardian regarding: the historical points, exam findings, and any diagnostic results supporting the discharge/admit diagnosis, lab results, radiology results, the need for outpatient follow up, to return to the emergency department if symptoms worsen or persist or if there are any questions or concerns that arise at home. Special discussion: Based on the patient's Hx, exam, and Dx evaluation, there is no indication for emergent surgery or inpatient Tx. It is understood by the patient/guardian that if the Sx's persist or worsen they need to return immediately for re-evaluation. I discussed with the patient/guardian in detail that at this point there is no indication for admission to the hospital. It is understood, however, that if the symptoms persist or worsen the patient needs to return immediately for re-evaluation. Based on the history and exam findings, there is no indication for further emergent testing or inpatient evaluation. I discussed with the patient/guardian the need to see the top cleaner for further evaluation of the symptoms. ED course: No acute findings in blood work or CT abdomen pelvis. Stable vital signs. Will send home patient with antacid medication and GI follow-up.. 06/27 12:43 Order name: CBC with Diff rn 06/27 12:43 Order name: Basic Metabolic Panel; Complete Time: 13:53 rn 06/27 12:43 Order name: Protime (+inr); Complete Time: 13:53 rn 06/27 12:43 Order name: Ptt, Activated; Complete Time: 13:53 rn 06/27 12:43 Order name: CBC with Automated Diff; Complete Time: 13:53 EDMS 06/27 12:43 Order name: IV Start; Complete Time: 12:59 rn 06/27 13:16 Order name: CT Abd/Pelvis - Without Contrast; Complete Time: 13:53 rn Administered Medications: 13:30 Drug: GI Cocktail without - (Maalox Suspension 30 ml, Lidocaine Liquid 2 % 15 tc5 ml) Route: PO; 14:57 Follow up: Response: No adverse reaction; Pain is decreased tc5 Disposition Summary: 06/27/21 14:14 Discharge Ordered Location: Home rn Problem: an ongoing problem rn Symptoms: have improved rn Condition: Stable rn Diagnosis - Abdominal pain, unspecified rn - Gastritis, unspecified rn Followup: rn - With: Private Physician - When: As needed - Reason: Recheck today's complaints, Re-evaluation by your physician Discharge Instructions: - Discharge Summary Sheet rn - Abdominal Pain, Adult rn - Gastritis, Adult rn - Gastrointestinal Bleeding rn - Lower Gastrointestinal Bleeding rn Forms: - Medication Reconciliation Form rn - Thank You Letter rn - Antibiotic internet marketing specialist - Prescription Opioid Use rn Prescriptions: - sucralfate 100 mg/mL Oral suspension - take 10 milliliter by ORAL route 4 times per day on an empty stomach 1 hour rn before meals and at bedtime; 400 milliliter; Refills: 0, Product Selection Permitted Signatures: Dispatcher [employer] Ramiro Quarles MD MD rn Baxter, Heather RN RN Natalie Cervantes RN RN tc5 Corrections: (The following items were deleted from the chart) 13:23 12:43 Abdomen Pelvis W Con+CT.RAD.BRZ ordered. EDMS EDMS
--- NOTE | 2021-06-27 14:14 | ER ---
Nurse's Notes [facility] Name: Joe Mullins Age: 45 yrs Sex: Female : 1975 Arrival Date: 06/27/2021 Time: 12:23 Bed 19 Private MD: Diagnosis: Abdominal pain, unspecified;Gastritis, unspecified Presentation: 06/27 12:25 Chief complaint: Bright red rectal bleeding and abdominal pain x 2 months. Coronavirus hb screen: At this time, the client does not indicate any symptoms associated with coronavirus-19. Ebola Screen: No symptoms or risks identified at this time. Risk Assessment: Do you want to hurt yourself or someone else? Patient reports no desire to harm self or others. Onset of symptoms was April 2021. 12:25 Method Of Arrival: Ambulatory hb 12:25 Acuity: MIKE 3 hb Historical: - Allergies: 12:27 Diflucan; hb 12:27 Levothyroxine Sodium; hb 12:27 PENICILLINS; hb 12:27 Zithromax; hb 13:00 Iodinated Contrast Media - IV Dye; tc5 - PMHx: 12:27 Asthma; HEP C; Thyroid problem; hb - Immunization history:: Client reports having NOT received the Covid vaccine. - Social history:: Smoking status: Patient reports the use of cigarette tobacco products, smokes one-half pack cigarettes per day. - Family history:: not pertinent. - Hospitalizations: : No recent hospitalization is reported. Screenin:06 Abuse screen: Denies threats or abuse. Denies injuries from another. Nutritional tc5 screening: No deficits noted. Tuberculosis screening: No symptoms or risk factors identified. Fall Risk None identified. Assessment: 13:04 Pain: Unable to use pain scale. pt does not rate the pain. GI: pt reports abd pain and tc5 rectal bleeding x 2 months, states she has not been eating a well balanced diet for a while and knows that not good for her and dont help matters. Vital Signs: 12:25 BP 137 / 78; Pulse 90; Resp 16; Temp 97.0; Pulse Ox 99% on R/A; Weight 57.61 kg; Height hb 5 ft. 3 in. (160.02 cm); Pain 8/10; 14:57 BP 137 / 79; Pulse 65; Resp 18; Pulse Ox 97% ; tc5 12:25 Body Mass Index 22.50 (57.61 kg, 160.02 cm) hb ED Course: 12:23 Patient arrived in ED. mr 12:27 Triage completed. hb 12:27 Arm band placed on. hb 12:28 Ramiro Martinez MD is Attending Physician. rn 12:28 Natalie Ivy, RN is Primary Nurse. tc5 12:59 Inserted saline lock: 20 gauge in left antecubital area, using aseptic technique. Blood tc5 collected. 13:40 CT Abd/Pelvis - Without Contrast In Process Unspecified. EDMS 14:58 IV discontinued, intact, bleeding controlled, No redness/swelling at site. Pressure tc5 dressing applied. Administered Medications: 13:30 Drug: GI Cocktail without - (Maalox Suspension 30 ml, Lidocaine Liquid 2 % 15 tc5 ml) Route: PO; 14:57 Follow up: Response: No adverse reaction; Pain is decreased tc5 Outcome: 14:14 Discharge ordered by . rn 14:58 Patient left the ED. tc5 Signatures: Dispatcher [employer] EDOH Daniella Yan mr Ramiro Martinez MD MD rn Baxter, Heather, RN RN hb Cassaboom, Theresa, ALYSIA RN tc5
[2021-06-27 15:15] VITALS: TEMP 97
[2021-06-27 15:16] VITALS: BP 137/79; O2SAT 97
== END 2021-06-27 14:58 | disposition home or self-care (01) ==
LOC: ER 12:18
DX: K29.70 Gastritis, unspecified, without bleeding (principal); F17.210 Nicotine dependence, cigarettes, uncomplicated; Z88.0 Allergy status to penicillin; Z88.8 Allergy status to other drugs, medicaments and biological substances; Z88.3 Allergy status to other anti-infective agents; Z91.041 Radiographic dye allergy status
CPT/HCPCS: 36415; 74176; 80048; 85025; 85610; 85730; 99284

== ENCOUNTER 2021-07-04 20:48 | Emergency (ER) | payer OTHER ==
--- NOTE | 2021-07-04 21:50 | RAD REPORT ---
EXAM DESCRIPTION: CT - Stone Protocol - 07/04/2021 9:35 pm CLINICAL HISTORY: Abdominal pain. COMPARISON: June 27, 2021 TECHNIQUE: Computed axial tomography of the abdomen pelvis was obtained without oral or IV contrast. Lack of IV and oral contrast limits evaluation of solid organs, bowel, and vessels. Coronal reformat lui images were obtained and reviewed. All CT scans are performed using dose optimization technique as appropriate and may include automated exposure control or mA/KV adjustment according to patient size. FINDINGS: A renal calculus is not seen. An ureteral calculus is not noted. A bladder calculus is not present. The liver, spleen, pancreas and adrenals appear grossly normal There is no evidence of diverticulitis. The appendix appears normal Hysterectomy. Cholecystectomy. Small umbilical hernia IMPRESSION: Negative for a genitourinary calculus
[2021-07-04 22:07] LABS: Absolute Lymphocytes (CBC) 3.2 K/uL (0.7-4.9); Basophils % 1.2 % (0-1.3); Lymphocytes % 34.8 % (15.3-44.8); MPV 10.3 fL (7.6-11.3); RBC Red Blood Cell Count 4.62 M/uL (3.86-4.86)
[2021-07-04] MEDS ORDERED: NA CHLORIDE 0.9% 0 ML ONE (22:07)
[2021-07-04] MEDS ORDERED: ONDANSETRON 4 MG/2 ML VIAL ONE (22:07)
[2021-07-04] MEDS ORDERED: NA CHLORIDE 0.9% 1,000 ML ONE (22:25)
[2021-07-04] MEDS ORDERED: FENTANYL CITR 100 MCG/2 ML ONE (22:28)
[2021-07-04 22:46] LABS: Albumin 3.7 g/dL (3.4-5.0); Bilirubin Direct 0.1 mg/dL (0-0.2); Bilirubin Total 0.5 mg/dL (0.2-1.0); Potassium 3.8 mmol/L (3.5-5.1); Protein, Total 7.3 g/dL (6.4-8.2)
--- NOTE | 2021-07-04 23:13 | ER ---
Nurse's Notes [facility] Name: Joe Mullins Age: 45 yrs Sex: Female : 1975 Arrival Date: 07/04/2021 Time: 20:55 Bed 18 Private MD: Diagnosis: Abdominal pain, Generalized Presentation: 07/04 21:12 Chief complaint: Patient states: Sharp,shooting Rt lower abd pain that started 24 hrs sj1 ago with nausea. Coronavirus screen: Vaccine status: Patient reports being unvaccinated. Ebola Screen: Patient negative for fever greater than or equal to 101.5 degrees Fahrenheit, and additional compatible Ebola Virus Disease symptoms Patient denies exposure to infectious person. Patient denies travel to an Ebola-affected area in the 21 days before illness onset. Initial Sepsis Screen: Does the patient meet any 2 criteria? No. Patient's initial sepsis screen is negative. Does the patient have a suspected source of infection? No. Patient's initial sepsis screen is negative. Risk Assessment: Do you want to hurt yourself or someone else? Patient reports no desire to harm self or others. Onset of symptoms was July 03, 2021. 21:12 Method Of Arrival: Ambulatory sj1 21:12 Acuity: MIKE 2 sj1 Triage Assessment: 21:16 General: Appears uncomfortable, Behavior is cooperative, appropriate for age. Pain: sj1 Complains of pain in RLQ Pain radiates to to rt lower back Pain currently is 10 out of 10 on a pain scale. Quality of pain is described as sharp, shooting, Pain began 1 day ago. Is continuous. GI: Reports lower abdominal pain, nausea. Historical: - Allergies: 21:15 Diflucan; sj1 21:15 Iodinated Contrast Media - IV Dye; sj1 21:15 Levothyroxine Sodium; sj1 21:15 PENICILLINS; sj1 21:15 Zithromax; sj1 - PMHx: 21:15 Asthma; HEP C; Thyroid problem; sj1 - Immunization history:: Adult Immunizations up to date, Client reports having NOT received the Covid vaccine. - Social history:: Smoking status: Patient reports the use of cigarette tobacco products, smokes one pack cigarettes per day. Screenin:16 Abuse screen: Denies threats or abuse. Denies injuries from another. Nutritional sj1 screening: No deficits noted. Tuberculosis screening: No symptoms or risk factors identified. Fall Risk None identified. Assessment: 22:09 General: Appears distressed, uncomfortable, Behavior is cooperative, restless, Reports kc4 Denies fever, feeling ill, fatigue, chills. Pain: Complains of pain in abdomen Pain does not radiate. Pain currently is 7 out of 10 on a pain scale. at worst was 9 out of 10 on a pain scale. level that patient reports is acceptable is 2 out of 10 on a pain scale. Quality of pain is described as burning, crampy, sharp, Pain began gradually, Alleviated by medications, Aggravated by eating, drinking. Neuro: No deficits noted. Cardiovascular: No deficits noted. Respiratory: No deficits noted. GI: Bowel sounds present X 4 quads. Abd is soft and non tender X 4 quads. Reports upper abdominal pain, cramping, nausea. : No deficits noted. No signs and/or symptoms were reported regarding the genitourinary system. EENT: No deficits noted. No signs and/or symptoms were reported regarding the EENT system. Derm: No deficits noted. No signs and/or symptoms reported regarding the dermatologic system. Musculoskeletal: No deficits noted. No signs and/or symptoms reported regarding the musculoskeletal system. Vital Signs: 21:12 BP 131 / 91 RA Sitting (auto/reg); Pulse 112; Resp 20 S; Temp 98.2(O); Pulse Ox 100% on sj1 R/A; Weight 58.06 kg (R); Height 5 ft. 3 in. (160.02 cm) (R); Pain 10/10; 22:06 BP 128 / 83; Pulse 88; Resp 18; Temp 98.7(O); Pulse Ox 98% on R/A; Pain 5/10; kc4 23:47 BP 117 / 72; Pulse 80; Resp 18; Temp 98.6(O); Pulse Ox 99% on R/A; Pain 0/10; kc4 21:12 Body Mass Index 22.67 (58.06 kg, 160.02 cm) sj1 [place] Coma Score: 22:06 Eye Response: spontaneous(4). Verbal Response: oriented(5). Motor Response: obeys kc4 commands(6). Total: 15. ED Course: 20:55 Patient arrived in ED. bp1 21:15 Triage completed. sj1 21:16 Arm band placed on left wrist. sj1 21:17 Patient has correct armband on for positive identification. sj1 21:19 Ines Dawson FNP-C is [facility]. kb 21:19 Madhav Rivera MD is Attending Physician. kb 21:34 CT Stone Protocol In Process Unspecified. EDMS 21:38 Daphnie Burton is Primary Nurse. kc4 21:58 Inserted saline lock: 20 gauge in left upper arm, using aseptic technique. Blood kc4 collected. 21:59 Basic Metabolic Panel Sent. kc4 21:59 CBC with Diff Sent. kc4 21:59 Hepatic Function Sent. kc4 21:59 Lipase Sent. kc4 22:06 Basic Metabolic Panel Sent. kc4 22:06 CBC with Diff Sent. kc4 22:06 Hepatic Function Sent. kc4 22:06 Lipase Sent. kc4 22:06 No provider procedures requiring assistance completed. kc4 23:49 IV discontinued, intact, bleeding controlled, No redness/swelling at site. Pressure kc4 dressing applied. Administered Medications: 21:59 Drug: Zofran (Ondansetron) 4 mg Route: IVP; Site: left upper arm; kc4 23:25 Follow up: Response: No adverse reaction kc4 22:06 Drug: NS 0.9% 1000 ml Route: IV; Rate: 1000 ml; Site: left upper arm; kc4 23:26 Follow up: Response: No adverse reaction kc4 23:51 Follow up: IV Status: Completed infusion kc4 22:13 Drug: fentaNYL (PF) 25 mcg Route: IVP; Site: left upper arm; kc4 23:25 Follow up: Response: No adverse reaction kc4 23:20 Drug: Ketorolac 30 mg Route: IVP; Site: left upper arm; kc4 23:47 Follow up: Response: No adverse reaction kc4 Outcome: 23:13 Discharge ordered by . kb 23:49 Discharged to home ambulatory. kc4 23:49 Condition: improved 23:49 Discharge instructions given to patient, Instructed on discharge instructions, follow up and referral plans. medication usage, Demonstrated understanding of instructions, follow-up care, medications, Prescriptions given X 1. 23:51 Patient left the ED. kc4 Signatures: Dispatcher [employer] EDCT Ines Dawson FNP-C FNP-Ckb [place] Neelima bp1 Chuman, Daphnie kc4 Neelima Ingram, RN RN sj1
--- NOTE | 2021-07-04 23:14 | EDPHYS ---
Physician Documentation [facility] Name: Joe Mullins Age: 45 yrs Sex: Female : 1975 Arrival Date: 07/04/2021 Time: 20:55 Bed 18 Private MD: YIFAN Physician Madhav Rivera HPI: 07/04 22:24 This 45 yrs old Female presents to ER via Ambulatory with complaints of kb Abdominal Pain, Nausea. 22:24 The patient presents with abdominal pain in the right upper quadrant. Onset: The kb symptoms/episode began/occurred last night. The symptoms do not radiate. Associated signs and symptoms: Pertinent positives: nausea, Pertinent negatives: diarrhea, fever, vomiting. The symptoms are described as constant. Modifying factors: The symptoms are alleviated by nothing, the symptoms are aggravated by nothing. Severity of pain: At its worst the pain was moderate in the emergency department the pain is unchanged. The patient has not experienced similar symptoms in the past. The patient has not recently seen a physician. Pt reports RLQ pain that started at 2200 last night. States she has had GI issues for years, but hasn't been able to follow up with her GI because she doesn't have the money. . Historical: - Allergies: 21:15 Diflucan; sj1 21:15 Iodinated Contrast Media - IV Dye; sj1 21:15 Levothyroxine Sodium; sj1 21:15 PENICILLINS; sj1 21:15 Zithromax; sj1 - PMHx: 21:15 Asthma; HEP C; Thyroid problem; sj1 - Immunization history:: Adult Immunizations up to date, Client reports having NOT received the Covid vaccine. - Social history:: Smoking status: Patient reports the use of cigarette tobacco products, smokes one pack cigarettes per day. ROS: 22:24 Constitutional: Negative for fever, chills, and weight loss. kb 22:24 Abdomen/GI: Positive for abdominal pain, nausea, Negative for vomiting, diarrhea. 22:24 All other systems are negative. Exam: 22:24 Constitutional: This is a well developed, well nourished patient who is awake, alert, kb and in no acute distress. Head/Face: Normocephalic, atraumatic. ENT: Moist Mucous membranes Cardiovascular: Regular rate and rhythm with a normal S1 and S2. No gallops, murmurs, or rubs. No pulse deficits. Respiratory: Respirations even and unlabored. No increased work of breathing, no retractions or nasal flaring. Skin: Warm, dry with normal turgor. Normal color. MS/ Extremity: Pulses equal, no cyanosis. Neurovascular intact. Full, normal range of motion. Neuro: Awake and alert, GCS 15, oriented to person, place, time, and situation. Moves all extremities. Normal gait. Psych: Awake, alert, with orientation to person, place and time. Behavior, mood, and affect are within normal limits. 22:24 Abdomen/GI: Inspection: abdomen appears normal, Bowel sounds: normal, Palpation: soft, in all quadrants, moderate abdominal tenderness, in the right upper quadrant. Vital Signs: 21:12 BP 131 / 91 RA Sitting (auto/reg); Pulse 112; Resp 20 S; Temp 98.2(O); Pulse Ox 100% on sj1 R/A; Weight 58.06 kg (R); Height 5 ft. 3 in. (160.02 cm) (R); Pain 10/10; 22:06 BP 128 / 83; Pulse 88; Resp 18; Temp 98.7(O); Pulse Ox 98% on R/A; Pain 5/10; kc4 23:47 BP 117 / 72; Pulse 80; Resp 18; Temp 98.6(O); Pulse Ox 99% on R/A; Pain 0/10; kc4 21:12 Body Mass Index 22.67 (58.06 kg, 160.02 cm) sj1 [place] Coma Score: 22:06 Eye Response: spontaneous(4). Verbal Response: oriented(5). Motor Response: obeys kc4 commands(6). Total: 15. MDM: 21:19 Patient medically screened. kb 22:13 Data reviewed: vital signs, nurses notes. Data interpreted: Pulse oximetry: on room air kb is 98 %. Interpretation: normal. 22:58 Counseling: I had a detailed discussion with the patient and/or guardian regarding: the kb historical points, exam findings, and any diagnostic results supporting the discharge/admit diagnosis, lab results, radiology results, the need for outpatient follow up, a checker and packer, to return to the emergency department if symptoms worsen or persist or if there are any questions or concerns that arise at home. 10/11 21:19 Order name: Basic Metabolic Panel; Complete Time: 22:55 kb 07/04 21:19 Order name: CBC with Diff; Complete Time: 22:23 kb 07/04 21:19 Order name: Hepatic Function; Complete Time: 22:55 kb 07/04 21:19 Order name: Lipase; Complete Time: 22:55 kb 07/04 21:19 Order name: CT Stone Protocol; Complete Time: 21:53 kb 07/04 21:19 Order name: IV Saline Lock; Complete Time: 21:59 kb 07/04 21:19 Order name: Labs collected and sent; Complete Time: 21:59 kb Administered Medications: 21:59 Drug: Zofran (Ondansetron) 4 mg Route: IVP; Site: left upper arm; kc4 23:25 Follow up: Response: No adverse reaction kc4 22:06 Drug: NS 0.9% 1000 ml Route: IV; Rate: 1000 ml; Site: left upper arm; kc4 23:26 Follow up: Response: No adverse reaction kc4 23:51 Follow up: IV Status: Completed infusion kc4 22:13 Drug: fentaNYL (PF) 25 mcg Route: IVP; Site: left upper arm; kc4 23:25 Follow up: Response: No adverse reaction kc4 23:20 Drug: Ketorolac 30 mg Route: IVP; Site: left upper arm; kc4 23:47 Follow up: Response: No adverse reaction kc4 Disposition: 07/05 08:46 Co-signature as Attending Physician, Madhav Rivera MD I agree with the assessment and chaya plan of care. Disposition Summary: 07/04/21 23:13 Discharge Ordered Location: Home kb Condition: Stable kb Diagnosis - Abdominal pain, Generalized kb Followup: kb - With: Emergency Department - When: As needed - Reason: Worsening of condition Followup: kb - With: Private Physician - When: 2 - 3 days - Reason: Recheck today's complaints, Continuance of care, Re-evaluation by your physician Discharge Instructions: - Discharge Summary Sheet kb - Abdominal Pain, Adult, [id number] kb Forms: - Medication Reconciliation Form kb - Thank You Letter kb - Antibiotic Education kb - Prescription Opioid Use kb Prescriptions: - Zofran 4 mg Oral Tablet - take 1 tablet by ORAL route every 6 hours As needed; 20 tablet; Refills: 0, kb Product Selection Permitted Signatures: Dispatcher [employer] Ines Mcdonald, MANAGING MANAGER-C AGUSTÍN-Madhav Puentes MD MD cha Chuman, Kourtney kc4 Neelima Ingram, RN RN sj1
[2021-07-04] MEDS ORDERED: KETOROLAC 30 MG/ML INJ ONE (23:52)
[2021-07-05 00:23] VITALS: BP 117/72; TEMP 98.6; O2SAT 99
== END 2021-07-04 23:51 | disposition home or self-care (01) ==
LOC: ER 20:48
DX: R10.84 Generalized abdominal pain (principal); F17.210 Nicotine dependence, cigarettes, uncomplicated; Z88.0 Allergy status to penicillin; Z88.1 Allergy status to other antibiotic agents; Z88.3 Allergy status to other anti-infective agents; Z91.041 Radiographic dye allergy status
CPT/HCPCS: 96361; 85025; 80048; 36415; 80076; 83690; 76377; 74176; 96375; 96374; 99284; J3010; J7030; J2405

== ENCOUNTER 2021-07-08 21:18 | Emergency (ER) | payer OTHER ==
[2021-07-08 22:00] LABS: Urine Blood Negative (Negative); Urine Glucose Negative (Negative); Urine Protein Negative (Negative)
[2021-07-08 22:02] LABS: Absolute Lymphocytes (CBC) 3.9 K/uL (0.7-4.9); Basophils % 0.9 % (0-1.3); Hematocrit 43.5 % (36.0-45.0); Lymphocytes % 37.7 % (15.3-44.8); MPV 11.5 fL (7.6-11.3); RBC Red Blood Cell Count 4.66 M/uL (3.86-4.86)
[2021-07-08 22:19] LABS: ALT/SGPT 39 U/L (12-78); AST/SGOT 26 U/L (15-37); Albumin 4.2 g/dL (3.4-5.0); Alkaline Phosphatase 72 U/L (45-117); BUN Blood Urea Nitrogen 9 mg/dL (7-18); Bicarbonate 26 mmol/L (21-32); Bilirubin Direct < 0.1 mg/dL (0-0.2); Bilirubin Total 0.4 mg/dL (0.2-1.0); Glucose Level 93 mg/dL (74-106); Potassium 3.7 mmol/L (3.5-5.1); Protein, Total 8.2 g/dL (6.4-8.2); Sodium Level 138 mmol/L (136-145)
--- NOTE | 2021-07-09 00:55 | ER ---
Nurse's Notes [facility] Name: Joe Mullins Age: 45 yrs Sex: Female : 1975 Arrival Date: 07/08/2021 Time: 21:21 Bed 3 Private MD: Diagnosis: right flank pain Presentation: 07/08 21:26 Chief complaint: Patient states: ONGOING BILAT FLANK PAIN (RT WORSE THAN LEFT), WAS sj1 SEEN RECENTLY FOR SAME S/S. BURNING WITH URINATION. HX OF CYSTITIS. C/O NAUSEA WITHOUT VOMITING. DENIES DIARRHEA. Coronavirus screen: Vaccine status: Patient reports being unvaccinated. Ebola Screen: Patient negative for fever greater than or equal to 101.5 degrees Fahrenheit, and additional compatible Ebola Virus Disease symptoms Patient denies exposure to infectious person. Patient denies travel to an Ebola-affected area in the 21 days before illness onset. Initial Sepsis Screen: Does the patient meet any 2 criteria? No. Patient's initial sepsis screen is negative. Does the patient have a suspected source of infection? No. Patient's initial sepsis screen is negative. Risk Assessment: Do you want to hurt yourself or someone else? Patient reports no desire to harm self or others. Onset of symptoms was July 04, 2021. 21:26 Method Of Arrival: Ambulatory [facility] 21:26 Acuity: MIKE 3 sj1 Triage Assessment: 21:32 General: Appears in no apparent distress. General: Behavior is calm, cooperative, sj1 appropriate for age. Pain: Complains of pain in BILAT FLANK PAIN. EENT: No deficits noted. Neuro: No deficits noted. Cardiovascular: No deficits noted. Respiratory: No deficits noted. : Reports burning with urination. Derm: No deficits noted. Musculoskeletal: No deficits noted. 21:35 GI: Reports nausea. sj1 Historical: - Allergies: 21:32 Diflucan; sj1 21:32 Iodinated Contrast Media - IV Dye; sj1 21:32 Levothyroxine Sodium; sj1 21:32 Zithromax; sj1 21:32 PENICILLINS; sj1 - Home Meds: 21:32 sucralfate 100 mg/mL oral susp 10 mL 4 times per day [Active]; sj1 - PMHx: 21:32 Asthma; HEP C; Thyroid problem; sj1 - Immunization history:: Adult Immunizations up to date. - Social history:: Smoking status: Patient reports the use of cigarette tobacco products, smokes one pack cigarettes per day. Patient/guardian denies using alcohol, street drugs. Screenin:35 Abuse screen: Denies threats or abuse. Denies injuries from another. Nutritional sj1 screening: No deficits noted. Tuberculosis screening: No symptoms or risk factors identified. Fall Risk None identified. Assessment: 22:10 Respiratory: No deficits noted. GI: Reports nausea, Bilat flank pain. non radiating. wg : No deficits noted. 22:20 Reassessment: Pt stating she wants a pizza. States she could eat the whole thing. wg States she hasn't eaten all day. 23:29 Reassessment: No changes from previously documented assessment. Patient is alert, wg oriented x 3, equal unlabored respirations, skin warm/dry/pink. Patient states symptoms have improved. 07/09 00:54 Reassessment: No changes from previously documented assessment. Patient is alert, wg oriented x 3, equal unlabored respirations, skin warm/dry/pink. Patient states symptoms have improved. Vital Signs: 07/08 21:26 BP 133 / 93; Pulse 107; Resp 17 S; Temp 98.3(O); Pulse Ox 100% on R/A; Weight 58.97 kg sj1 (R); Height 5 ft. 3 in. (160.02 cm) (R); Pain 8/10; 22:27 BP 111 / 88; Pulse 90; Resp 18; Pulse Ox 100% on R/A; Pain 4/10; wg 23:29 BP 107 / 71; Pulse 84; Resp 18; Pulse Ox 99% on R/A; Pain 4/10; wg 07/09 00:54 BP 108 / 70; Pulse 78; Resp 18; Pulse Ox 99% on R/A; Pain 2/10; wg 01:04 BP 119 / 73; Pulse 92; Resp 18; Temp 98.1(O); Pulse Ox 100% on R/A; Pain 4/10; df1 07/08 21:26 Body Mass Index 23.03 (58.97 kg, 160.02 cm) 1 Vitals: 07/08 22:22 Cardiac Rhythm Assessment Regular Sinus rhythm. wg ED Course: 21:21 Patient arrived in ED. ja2 21:32 Triage completed. sj1 21:35 Arm band placed on right wrist. sj1 21:35 Patient has correct armband on for positive identification. sj1 21:39 Kumar Hillman MD is Attending Physician. ps1 21:51 Inserted saline lock: 20 gauge in right antecubital area, using aseptic technique. sj1 Blood collected. 21:54 Noel Suero, RN is Primary Nurse. wg 22:13 Hepatic Function Sent. wg 22:13 Basic Metabolic Panel Sent. wg 22:22 CT Abd/Pelvis - Without Contrast In Process Unspecified. EDMS 22:22 underwear finisher on. Pulse ox on. NIBP on. wg 22:22 Patient maintains SpO2 saturation greater than 95% on room air. wg 07/09 00:55 Kumar Hillman MD is Referral Physician. ps1 01:04 IV discontinued, intact, bleeding controlled, No redness/swelling at site. df1 01:10 No provider procedures requiring assistance completed. df1 Administered Medications: 07/08 22:05 Drug: NS 0.9% 1000 ml Route: IV; Rate: 1 bolus; Infused Over: 30 mins; Site: right antecubital; 07/09 01:19 Follow up: IV Status: Completed infusion; IV Intake: 1000ml 07/08 22:05 Drug: Zofran (Ondansetron) 4 mg Route: IVP; Infused Over: 2 mins; Site: right antecubital; 07/09 01:19 Follow up: Response: No adverse reaction 07/08 22:05 Drug: Rocephin (cefTRIAXone) 1 grams Route: IV; Rate: bolus; Infused Over: 5 mins; Site: right antecubital; 07/09 01:20 Follow up: IV Status: Completed infusion; IV Intake: 10ml Intake: 01:19 IV: 1000ml; Total: 1000ml. 01:20 IV: 10ml; Total: 1010ml. Outcome: 00:55 Discharge ordered by . ps1 01:04 Discharged to home ambulatory. df1 01:04 Condition: stable 01:04 Discharge instructions given to patient, Instructed on discharge instructions, follow up and referral plans. medication usage, Demonstrated understanding of instructions, follow-up care, medications, Prescriptions given X 2. 01:20 Patient left the ED. wg Signatures: Dispatcher MedHo Kumar Gandhi MD MD ps1 Noel Suero RN Isis Cervantes Dawn df1 Neelima Ingram RN RN sj1 Corrections: (The following items were deleted from the chart) 07/08 22: Respiratory: No deficits noted. [facility] : GI: Reports nausea, Bilat flank pain. non radiating. [facility] : : No deficits noted. [facility]
--- NOTE | 2021-07-09 00:55 | EDPHYS ---
Physician Documentation [facility] Name: Joe Mullins Age: 45 yrs Sex: Female : 1975 Arrival Date: 07/08/2021 Time: 21:21 Bed 3 Private MD: YIFAN Physician Kumar Hillman HPI: 07/08 22:02 This 45 yrs old Female presents to ER via Ambulatory with complaints of ps1 BACTERIA IN BLADDER AND KIDNEYS. 22:02 Patient states that her symptoms have been ongoing for greater than 3 months. She ps1 states that she has had work-ups outpatient previously without diagnosis. She additionally is severely allergic to multiple medications. She states that she has associated nausea and vomiting. She takes Carafate and omeprazole for her extremely sensitive stomach. She states that she cannot take any pills by mouth. She states that the pain that she is having is localized in the right flank with radiation into the groin. Additionally has some dysuria. No hematuria. No fever.. Historical: - Allergies: 21:32 Diflucan; sj1 21:32 Iodinated Contrast Media - IV Dye; sj1 21:32 Levothyroxine Sodium; sj1 21:32 Zithromax; sj1 21:32 PENICILLINS; sj1 - Home Meds: 21:32 sucralfate 100 mg/mL oral susp 10 mL 4 times per day [Active]; sj1 - PMHx: 21:32 Asthma; HEP C; Thyroid problem; sj1 - Immunization history:: Adult Immunizations up to date. - Social history:: Smoking status: Patient reports the use of cigarette tobacco products, smokes one pack cigarettes per day. Patient/guardian denies using alcohol, street drugs. ROS: 22:02 Constitutional: Negative for fever, chills, and weight loss, Eyes: Negative for injury, ps1 pain, redness, and discharge, Cardiovascular: Negative for chest pain, palpitations, and edema, Respiratory: Negative for shortness of breath, cough, wheezing, and pleuritic chest pain, MS/Extremity: Negative for injury and deformity, Skin: Negative for injury, rash, and discoloration, Neuro: Negative for headache, weakness, numbness, tingling, and seizure. 22:02 Abdomen/GI: Positive for abdominal pain, nausea and vomiting. 22:02 : Positive for urinary symptoms, flank pain. Exam: 22:03 Constitutional: This is a well developed, well nourished patient who is awake, alert, ps1 and in no acute distress. Head/Face: Normocephalic, atraumatic. Eyes: Pupils equal round and reactive to light, extra-ocular motions intact. Lids and lashes normal. Conjunctiva and sclera are non-icteric and not injected. Chest/axilla: Normal chest wall appearance and motion. Nontender with no deformity. No lesions are appreciated. Cardiovascular: Regular rate and rhythm. No gallops, murmurs, or rubs. Normal PMI, no JVD. No pulse deficits. Respiratory: Lungs have equal breath sounds bilaterally, clear to auscultation and percussion. No rales, rhonchi or wheezes noted. No increased work of breathing, no retractions or nasal flaring. 22:03 Abdomen/GI: Inspection: abdomen appears normal, Bowel sounds: normal, Palpation: mild abdominal tenderness, in the right upper quadrant, Right flank. Vital Signs: 21:26 BP 133 / 93; Pulse 107; Resp 17 S; Temp 98.3(O); Pulse Ox 100% on R/A; Weight 58.97 kg [facility] (R); Height 5 ft. 3 in. (160.02 cm) (R); Pain 8/10; 22:27 BP 111 / 88; Pulse 90; Resp 18; Pulse Ox 100% on R/A; Pain 4/10; wg 23:29 BP 107 / 71; Pulse 84; Resp 18; Pulse Ox 99% on R/A; Pain 4/10; wg 07/09 00:54 BP 108 / 70; Pulse 78; Resp 18; Pulse Ox 99% on R/A; Pain 2/10; wg 01:04 BP 119 / 73; Pulse 92; Resp 18; Temp 98.1(O); Pulse Ox 100% on R/A; Pain 4/10; df1 07/08 21:26 Body Mass Index 23.03 (58.97 kg, 160.02 cm) [facility] MDM: 07/08 22:29 Patient medically screened. ps1 07/08 21:51 Order name: Basic Metabolic Panel; Complete Time: 22:29 ps1 07/08 21:51 Order name: CBC with Diff; Complete Time: 22:29 ps1 07/08 21:51 Order name: Hepatic Function; Complete Time: 22:29 [facility] 07/08 21:51 Order name: CT Abd/Pelvis - Without Contrast [facility] 07/08 22:00 Order name: Urine Dipstick-Ancillary; Complete Time: 22:29 [facility] 07/08 21:51 Order name: IV Saline Lock; Complete Time: 21:51 [facility] 07/08 21:51 Order name: Labs collected and sent; Complete Time: 21:51 [facility] Administered Medications: 22:05 Drug: NS 0.9% 1000 ml Route: IV; Rate: 1 bolus; Infused Over: 30 mins; Site: right antecubital; 07/09 01:19 Follow up: IV Status: Completed infusion; IV Intake: 1000ml 07/08 22:05 Drug: Zofran (Ondansetron) 4 mg Route: IVP; Infused Over: 2 mins; Site: right antecubital; 07/09 01:19 Follow up: Response: No adverse reaction 07/08 22:05 Drug: Rocephin (cefTRIAXone) 1 grams Route: IV; Rate: bolus; Infused Over: 5 mins; Site: right antecubital; 07/09 01:20 Follow up: IV Status: Completed infusion; IV Intake: 10ml Disposition Summary: 07/09/21 00:55 Discharge Ordered Location: Home ps1 Problem: an ongoing problem ps1 Symptoms: are unchanged ps1 Condition: Stable ps1 Diagnosis - right flank pain ps1 Followup: ps1 - With: Private Physician - When: - Reason: Recheck today's complaints, Continuance of care, Re-evaluation by your physician Followup: ps1 - With: Kumar Hillman MD - When: As needed - Reason: Fever > 102 F, Trouble breathing, Worsening of condition Discharge Instructions: - Discharge Summary Sheet ps1 - Flank Pain, Adult ps1 Forms: - Medication Reconciliation Form ps1 - Thank You Letter ps1 - Antibiotic Education ps1 - Prescription Opioid Use ps1 Prescriptions: - promethazine 50 mg Rectal suppository - insert 1 suppository by RECTAL route once daily; 10 suppository; Refills: 0, ps1 Product Selection Permitted - Zofran 4 mg Oral Tablet - take 1 tablet by ORAL route every 12 hours As needed; 20 tablet; Refills: 0, ps1 Product Selection Permitted Signatures: [facility] HillmanKumar MD MD ps1 Gamba, Liam, ALYSIA wg Neelima Ingram RN RN sj1
[2021-07-09 01:31] VITALS: BP 119/73; TEMP 98.1; O2SAT 100
--- NOTE | 2021-07-09 14:55 | RAD REPORT ---
EXAM DESCRIPTION: CT - Abdomen Pelvis Wo Contrast - 07/09/2021 6:50 am CLINICAL HISTORY: 45 years, Female, right flank pain. COMPARISON: None. TECHNIQUE: Multiple transaxial tomograms of the abdomen and pelvis were performed from the lung base s to the symphysis pubis 5 mm slice thickness at 5 mm interval reconstruction, without administration of IV and oral contrast. Multiplanar reformats in the sagittal and coronal plane were generated and reviewed. This exam was performed according to our departmental dose-optimization protocol, which includes auto mated exposure control, adjustment of the mA and/or kV according to patient size and/or use of iterat angela reconstruction technique. FINDINGS: The lack of IV and oral contrast limits evaluation of solid organs, subtle lesions cannot be excluded. The lung bases demonstrate to be clear. Grossly the unopacified liver, pancreas, spleen and adrenal glands demonstrate to be within normal li mits, no significant focal lesions were identified. Surgical clips within the gallbladder fossa cor respond to previous cholecystectomy. There is no biliary duct dilatation The kidneys demonstrate grossly unremarkable. There is no evidence for nephrolithiasis and/or hydro nephrosis. No focal masses were demonstrated. The ureters displays normal appearance with normal caliber, no hydroureter was seen. There are several calcification adjacent to the pelvic portion of t he right and left ureters corresponding to phlebolith. Grossly the unopacified stomach, small bowel and large bowel demonstrate to be within normal limits. There is no evidence for bowel dilatation an/or free air. The appendix is normal. The urinary bladder was partially distended with no gross abnormalities. The uterus is absent. There are no adnexal masses The aorta demonstrate minimal atheromatous plaque formation at the aortic bifur cation. There is no retroperitoneal lymphadenopathy. There is no evidence for ascites. The rest o f the soft tissue demonstrate to be grossly unremarkable. IMPRESSION: No evidence for nephrolithiasis and/or hydronephrosis. Status post cholecystectomy and hysterectomy. Electronically signed by: Radames Monroe MD 07/08/2021 10:46 PM CDT Due to temporary technical issues with the PACS/Fluency reporting system, reports are being signed by the in house radiologists without review as a courtesy to insure prompt reporting. The interpreting radiologist is fully responsible for the content of the report.
== END 2021-07-09 01:20 | disposition home or self-care (01) ==
LOC: ER 21:18
DX: R10.9 Unspecified abdominal pain (principal); F17.210 Nicotine dependence, cigarettes, uncomplicated; Z88.0 Allergy status to penicillin; Z88.3 Allergy status to other anti-infective agents; Z88.8 Allergy status to other drugs, medicaments and biological substances
CPT/HCPCS: 36415; 74176; 80048; 80076; 81003; 85025; 96365; 96366; 96375; 99285

== ENCOUNTER 2021-07-16 22:00 | Emergency (ER) | payer OTHER ==
[2021-07-16 22:48] LABS: Urine Blood Trace-intact (Negative); Urine Glucose Negative (Negative); Urine Protein Negative (Negative); Urine Specific Gravity >=1.030 (1.005-1.030)
[2021-07-16 23:02] LABS: Urine Specific Gravity/Preg >1.030 (1.005-1.030)
[2021-07-16 23:07] LABS: Basophils % 1.2 % (0-1.3); Hematocrit 42.2 % (36.0-45.0); Lymphocytes % 36.8 % (15.3-44.8); RBC Red Blood Cell Count 4.52 M/uL (3.86-4.86)
[2021-07-16 23:09] LABS: Urine Bacteria >50 /HPF (<20); Urine Mucus 1+ /HPF (NONE SEEN)
[2021-07-16] MEDS ORDERED: NA CHLORIDE 0.9% 1,000 ML ONE (23:22)
[2021-07-16 23:40] LABS: ALT/SGPT 33 U/L (12-78); AST/SGOT 23 U/L (15-37); Albumin 3.7 g/dL (3.4-5.0); Alkaline Phosphatase 68 U/L (45-117); BUN Blood Urea Nitrogen 12 mg/dL (7-18); Bicarbonate 29 mmol/L (21-32); Bilirubin Direct < 0.1 mg/dL (0-0.2); Bilirubin Total 0.2 mg/dL (0.2-1.0); Glucose Level 90 mg/dL (74-106); Lipase 190 U/L (73-393); Potassium 4.2 mmol/L (3.5-5.1); Protein, Total 7.8 g/dL (6.4-8.2); Sodium Level 145 mmol/L (136-145)
--- NOTE | 2021-07-16 23:53 | ER ---
Nurse's Notes [facility] Name: Joe Mullins Age: 45 yrs Sex: Female : 1975 Arrival Date: 07/16/2021 Time: 22:09 Bed 19 Private MD: Diagnosis: UTI/ Urinary tract infection, site not specified Presentation: 07/16 22:29 Chief complaint: Patient states: R low back pain and general abdominal pain x 2 days; lp1 reports dx of UTI on 07/12/21, did not get prescribed antibiotics; reports hesitant to take medication related to reported blood in stool, ongoing x 6 months. Coronavirus screen: Vaccine status: Patient reports being unvaccinated. At this time, the client does not indicate any symptoms associated with coronavirus-19. Ebola Screen: No symptoms or risks identified at this time. Initial Sepsis Screen: Does the patient meet any 2 criteria? No. Patient's initial sepsis screen is negative. Does the patient have a suspected source of infection? No. Patient's initial sepsis screen is negative. Risk Assessment: Do you want to hurt yourself or someone else? Patient reports no desire to harm self or others. Onset of symptoms was July 16, 2021. 22:29 Method Of Arrival: Wheelchair lp1 22:29 Acuity: MIKE 3 lp1 07/17 00:16 Note Pt medicated per order. Tolerating juice. Pt to be dc'd home with antibiotics. No df1 further questions voiced. Triage Assessment: 07/16 22:54 General: Appears in no apparent distress. Behavior is calm, cooperative. Pain: df1 Complains of pain in abdomen. GI: Reports lower abdominal pain, upper abdominal pain. 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 - Social history:: Smoking status: Patient reports the use of cigarette tobacco products, smokes one pack cigarettes per day. Screenin:36 Abuse screen: Denies threats or abuse. Denies injuries from another. Nutritional lp1 screening: No deficits noted. Tuberculosis screening: No symptoms or risk factors identified. Fall Risk None identified. Assessment: 22:54 GI: Bowel sounds present X 4 quads. df1 22:54 GI: Abd is soft X 4 quads Abdomen is tender to palpation. df1 Vital Signs: 22:29 BP 154 / 92; Pulse 116; Resp 18; Temp 98.7(O); Pulse Ox 99% on R/A; Weight 60.33 kg lp1 (R); Height 5 ft. 3 in. (160.02 cm); Pain 9/10; 23:14 BP 107 / 65 Supine; Pulse 84; Pulse Ox 99% on R/A; df1 23:14 BP 107 / 88 Sitting; Pulse 90; Pulse Ox 99% on R/A; df1 23:14 BP 124 / 74 Standing; Pulse 91; Pulse Ox 100% on R/A; df1 10 00:16 BP 115 / 67; Pulse 88; Resp 18; Pulse Ox 100% on R/A; df1 10 22:29 Body Mass Index 23.56 (60.33 kg, 160.02 cm) lp1 ED Course: 07/16 22:09 Patient arrived in ED. cf2 22:11 Ines Dawson FNP-C [facility] kb 22:11 Gopi Brown MD is Attending Physician. kb 22:14 Rekha Ferrara is Primary Nurse. df1 22:34 Triage completed. lp1 22:34 Arm band placed on. lp1 22:37 Patient has correct armband on for positive identification. lp1 22:54 Inserted saline lock: 20 gauge in left upper arm, using aseptic technique. Blood df1 collected. 22:54 No provider procedures requiring assistance completed. df1 07/17 00:36 IV discontinued, intact, No redness/swelling at site. Pressure dressing applied. df1 Administered Medications: 07/16 23:14 Drug: NS 0.9% 1000 ml Route: IV; Rate: 1000 ml; Site: left upper arm; df1 07/17 00:18 Follow up: IV Status: Completed infusion; IV Intake: 1000ml df1 00:15 Drug: fentaNYL (PF) 25 mcg Route: IVP; Site: right upper arm; df1 00:35 Follow up: Response: Pain is decreased df1 00:16 Drug: Rocephin (cefTRIAXone) 1 grams Route: IV; Rate: calculated rate; Site: right df1 upper arm; 00:18 Follow up: IV Status: Completed infusion; IV Intake: 10ml df1 00:16 Drug: Zofran (Ondansetron) 4 mg Route: IVP; Site: right upper arm; df1 00:36 Follow up: Response: No adverse reaction df1 Intake: 00:18 IV: 1000ml; Total: 1000ml. df1 00:18 IV: 10ml; Total: 1010ml. df1 Outcome: 07/16 23:52 Discharge ordered by MD. pal 07/17 00:36 Discharged to home ambulatory. df1 Condition: stable Discharge instructions given to patient, Instructed on discharge instructions, follow up and referral plans. medication usage, Demonstrated understanding of instructions, follow-up care, medications, Prescriptions given X 1. 00:37 Patient left the ED. df1 Signatures: Ines Dawson, INOCENCIO RANDOLPH-Ashleigh Gilbert RN RN lp1 Em Pino cf2 Rekha Ferrara df1
--- NOTE | 2021-07-16 23:53 | EDPHYS ---
Physician Documentation [facility] Name: Joe Mullins Age: 45 yrs Sex: Female : 1975 Arrival Date: 07/16/2021 Time: 22:09 Bed 19 Private MD: ED Physician Gopi Brown HPI: 07/16 23:04 This 45 yrs old Female presents to ER via Wheelchair with complaints of kb Abdominal Pain, Low Back Pain. 23:04 The patient presents with abdominal pain that is diffuse. Onset: The symptoms/episode kb began/occurred 1 year(s) ago, and became worse 2 day(s) ago. The symptoms do not radiate. Associated signs and symptoms: none. The symptoms are described as constant. Modifying factors: The symptoms are alleviated by nothing, the symptoms are aggravated by nothing. Severity of pain: At its worst the pain was moderate in the emergency department the pain is unchanged. The patient has experienced similar episodes in the past, chronically. The patient has been recently seen at the [facility] Emergency Department, last week, for similar complaints labs were performed, CT scan was performed. Pt states she has had abd pain for about a year. States she has had intermittent episodes of blood in stool over the last 6 months. Denies blood in stool at this time. Reports abd pain got worse 2 days ago and she wasn't able to follow up with GI since last visit here so she came back in. Labs and CT from last visit 7 days ago reviewed, all wnl.. 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 - Social history:: Smoking status: Patient reports the use of cigarette tobacco products, smokes one pack cigarettes per day. ROS: 22:41 Constitutional: Negative for fever, chills, and weight loss. kb 22:41 Abdomen/GI: Positive for abdominal pain, Negative for nausea, vomiting, and diarrhea. 22:41 All other systems are negative. Exam: 22:52 Constitutional: This is a well developed, well nourished patient who is awake, alert, kb and in no acute distress. Head/Face: Normocephalic, atraumatic. ENT: Moist Mucous membranes Cardiovascular: Regular rate and rhythm with a normal S1 and S2. No gallops, murmurs, or rubs. No pulse deficits. Respiratory: Respirations even and unlabored. No increased work of breathing, no retractions or nasal flaring. Skin: Warm, dry with normal turgor. Normal color. MS/ Extremity: Pulses equal, no cyanosis. Neurovascular intact. Full, normal range of motion. Neuro: Awake and alert, GCS 15, oriented to person, place, time, and situation. Moves all extremities. Normal gait. Psych: Awake, alert, with orientation to person, place and time. Behavior, mood, and affect are within normal limits. 22:52 Abdomen/GI: Inspection: abdomen appears normal, Bowel sounds: normal, Palpation: soft, in all quadrants, mild abdominal tenderness, in all quadrants. Vital Signs: 22:29 BP 154 / 92; Pulse 116; Resp 18; Temp 98.7(O); Pulse Ox 99% on R/A; Weight 60.33 kg lp1 (R); Height 5 ft. 3 in. (160.02 cm); Pain 9/10; 23:14 BP 107 / 65 Supine; Pulse 84; Pulse Ox 99% on R/A; df1 23:14 BP 107 / 88 Sitting; Pulse 90; Pulse Ox 99% on R/A; df1 23:14 BP 124 / 74 Standing; Pulse 91; Pulse Ox 100% on R/A; df1 07/17 00:16 BP 115 / 67; Pulse 88; Resp 18; Pulse Ox 100% on R/A; df1 07/16 22:29 Body Mass Index 23.56 (60.33 kg, 160.02 cm) lp1 MDM: 07/16 22:14 Patient medically screened. kb 22:41 Data reviewed: vital signs, nurses notes. Data interpreted: Pulse oximetry: on room air kb is 99 %. Interpretation: normal. 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 23:54 ED course: Pt states she cannot take macrobid or bactrim because it upsets her stomach kb and makes her whole body hurt. . 07/16 22:25 Order name: Basic Metabolic Panel; Complete Time: 23:42 kb 07/16 22:25 Order name: CBC with Diff; Complete Time: 23:17 kb 07/16 22:25 Order name: Hepatic Function; Complete Time: 23:42 kb 07/16 22:25 Order name: Lipase; Complete Time: 23:42 kb 07/16 22:25 Order name: Urine Microscopic Only; Complete Time: 23:17 kb 07/16 22:48 Order name: Urine Dipstick-Ancillary; Complete Time: 22:51 EDMS 07/16 22:25 Order name: IV Saline Lock; Complete Time: 22:53 kb 07/16 22:50 Order name: Urine --Ancillary (enter results); Complete Time: 23:04 tt3 07/16 23:10 Order name: Urine Culture EDMS 07/16 22:25 Order name: Labs collected and sent; Complete Time: 22:53 kb 07/16 22:25 Order name: Urine Dipstick-Ancillary (obtain specimen); Complete Time: 22:53 kb 07/16 22:25 Order name: Orthostatics; Complete Time: 23:14 kb 07/16 22:51 Order name: Urine Test (obtain specimen); Complete Time: 22:51 tt3 Administered Medications: 23:14 Drug: NS 0.9% 1000 ml Route: IV; Rate: 1000 ml; Site: left upper arm; df1 07/17 00:18 Follow up: IV Status: Completed infusion; IV Intake: 1000ml df1 00:15 Drug: fentaNYL (PF) 25 mcg Route: IVP; Site: right upper arm; df1 00:35 Follow up: Response: Pain is decreased df1 00:16 Drug: Rocephin (cefTRIAXone) 1 grams Route: IV; Rate: calculated rate; Site: right df1 upper arm; 00:18 Follow up: IV Status: Completed infusion; IV Intake: 10ml df1 00:16 Drug: Zofran (Ondansetron) 4 mg Route: IVP; Site: right upper arm; df1 00:36 Follow up: Response: No adverse reaction df1 Disposition: 07:36 Co-signature as Attending Physician, Gopi Brown MD. [email or web address] Disposition Summary: 07/16/21 23:52 Discharge Ordered Location: Home kb Condition: Stable kb Diagnosis - UTI/ Urinary tract infection, site not specified kb Followup: kb - With: Emergency Department - When: As needed - Reason: Worsening of condition Followup: kb - With: Private Physician - When: 2 - 3 days - Reason: Recheck today's complaints, Continuance of care, Re-evaluation by your physician Discharge Instructions: - Discharge Summary Sheet kb - Urinary Tract Infection, Adult, [id number] kb Forms: - Medication Reconciliation Form kb - Thank You Letter kb - Antibiotic Education kb - Prescription Opioid Use kb Prescriptions: - Cipro 500 mg Oral Tablet - take 1 tablet by ORAL route every 12 hours for 7 days; 14 tablet; Refills: 0, kb Product Selection Permitted Signatures: Dispatcher [employer] Ines Mcdonald, INOCENCIO RANDOLPH-Ashleigh Gilbert, RN RN lp1 Gopi Brown MD MD [id number] Charles Cano tt3 Rekha Ferrara df1 Corrections: (The following items were deleted from the chart) 07/16 22:46 22:29 Abdomen Pelvis W Con+CT.RAD.BRZ ordered. EDMS EDMS
[2021-07-17] MEDS ORDERED: ONDANSETRON 4 MG/2 ML VIAL ONE (00:21)
[2021-07-17] MEDS ORDERED: CEFTRIAXONE 1000 MG/VIAL ONE (00:21)
[2021-07-17] MEDS ORDERED: FENTANYL CITR 100 MCG/2 ML ONE (00:23)
[2021-07-17 00:52] VITALS: TEMP 98.7
[2021-07-17 00:54] VITALS: O2SAT 100
[2021-07-17 00:55] VITALS: BP 115/67
== END 2021-07-17 00:37 | disposition home or self-care (01) ==
LOC: ER 22:00
DX: N39.0 Urinary tract infection, site not specified (principal); Z88.3 Allergy status to other anti-infective agents; Z91.09 Other allergy status, other than to drugs and biological substances; Z88.0 Allergy status to penicillin; Z88.1 Allergy status to other antibiotic agents; Z88.8 Allergy status to other drugs, medicaments and biological substances; F17.210 Nicotine dependence, cigarettes, uncomplicated
CPT/HCPCS: 96361; 87088; 85025; 87086; 80048; 36415; 81025; 80076; 83690; 96375; 96374; 99284; J7030; 81003; 81015

== ENCOUNTER 2022-08-03 15:07 | Emergency (ER) | payer SELFPAY ==
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
[2022-08-03] MEDS ORDERED: TRAMADOL HCL 50 MG TAB ONE (15:43)
[2022-08-03] MEDS ORDERED: CEFTRIAXONE 1000 MG/VIAL ONE (15:44)
[2022-08-03] MEDS ORDERED: WATER FOR INJ,STERILE 10 ML ONE (15:44)
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
[2022-08-03 17:13] VITALS: BP 138/68; TEMP 98; O2SAT 100
== END 2022-08-03 17:03 | disposition home or self-care (01) ==
LOC: ER 15:07
DX: M54.9 Dorsalgia, unspecified (principal); F17.210 Nicotine dependence, cigarettes, uncomplicated; Z88.0 Allergy status to penicillin; Z88.1 Allergy status to other antibiotic agents; Z88.8 Allergy status to other drugs, medicaments and biological substances; Z91.09 Other allergy status, other than to drugs and biological substances
CPT/HCPCS: 96372; 99283

== ENCOUNTER 2022-08-17 16:13 | Emergency (ER) | payer OTHER ==
[2022-08-17] MEDS ORDERED: NA CHLORIDE 0.9% 1,000 ML ONE (17:00)
[2022-08-17 17:19] LABS: Urine Blood Negative (Negative); Urine Glucose Negative (Negative); Urine Protein Negative (Negative); Urine Specific Gravity 1.015 (1.005-1.030); Urine pH 8.5 (5.0-7.0)
[2022-08-17 18:22] LABS: Barbiturates NEGATIVE (NEGATIVE); Benzodiazepines NEGATIVE (NEGATIVE); Cocaine NEGATIVE (NEGATIVE); METHAMPHETAM NEGATIVE (NEGATIVE); Methadone NEGATIVE (NEGATIVE); Opiates NEGATIVE (NEGATIVE); Phencyclidine NEGATIVE (NEGATIVE); THC Cannibis POSITIVE (NEGATIVE)
--- NOTE | 2022-08-17 18:37 | EDPHYS ---
Physician Documentation [facility] Name: Joe Mullins Age: 46 yrs Sex: Female : 1975 Arrival Date: 08/17/2022 Time: 16:18 Bed 13 Private MD: ED Physician Jacob Dick HPI: 08/17 16:53 This 46 yrs old Female presents to ER via Ambulatory with complaints of Pain All Over, pm1 Dizziness. 16:53 The patient or guardian reports chest pain that is located primarily in the right pm1 breast and left breast. Onset: 10 day(s) ago. The pain does not radiate. Associated signs and symptoms: Pertinent positives: abdominal pain, boil to pubic area that has resolved. Dizziness with bending over, Pertinent negatives: nausea, shortness of breath, vomiting, Urinary symptoms. The chest pain is described as aching. Duration: The patient or guardian reports a single episode, that is still ongoing. Modifying factors: The symptoms are alleviated by nothing. the symptoms are aggravated by palpation of breasts. Severity of pain: in the emergency department the pain is actually worse. The patient has experienced similar episodes in the past, multiple times. The patient has not recently seen a physician, and does not have an established primary care provider, Patient presenting with similar symptoms 2 weeks ago. Patient reports improvement in her symptoms about 4 days after ER visit 2 weeks ago but her pain all over returned and has continued since then. Patient reports bilateral breast pain, abdominal pain, and boil present to pubic area that has resolved. Patient reports concern for infection for the past 10 days and has some dizziness with bending over. Historical: - Allergies: 16:30 Diflucan; ll1 16:30 Iodinated Contrast Media - IV Dye; ll1 16:30 Levothyroxine Sodium; ll1 16:30 PENICILLINS; ll1 16:30 Zithromax; ll1 - PMHx: 16:30 Asthma; HEP C; ibs; Thyroid problem; GERD; ll1 - PSHx: 16:30 Cholecystectomy; patial hysterectomy; ll1 - Immunization history:: Client reports having NOT received the Covid vaccine. - Social history:: Smoking status: Patient reports the use of cigarette tobacco products, denies chronic smoking, but will smoke occasionally, Reported history of juuling and/or vaping. ROS: 16:53 Constitutional: Negative for fever, chills, and weight loss. pm1 16:53 Respiratory: Negative for shortness of breath, cough, wheezing, and pleuritic chest pain. 16:53 Back: Negative for injury and pain, : Negative for injury, bleeding, discharge, and swelling, MS/Extremity: Negative for injury and deformity. 16:53 Cardiovascular: Positive for chest pain, of the left breast and right breast, Reports history of cysts to bilateral breasts and last mammogram 5 years ago. 16:53 Abdomen/GI: Positive for abdominal pain, Negative for nausea, vomiting, and diarrhea. 16:53 Skin: Positive for of the groin, boil that has resolved. 16:53 Neuro: Positive for dizziness, Negative for headache, numbness, tingling, weakness. 16:53 All other systems are negative. Exam: 16:53 Constitutional: This is a well developed, well nourished patient who is awake, alert, pm1 and in no acute distress. Head/Face: Normocephalic, atraumatic. 16:53 Skin: Warm, dry with normal turgor. Normal color with no rashes, no lesions, and no evidence of cellulitis. MS/ Extremity: Pulses equal, no cyanosis. Neurovascular intact. Full, normal range of motion. 16:53 Eyes: Exam is negative for acute changes, Periorbital structures: no acute changes, Pupils: no acute changes, Extraocular movements: no acute changes, Conjunctiva: no acute changes, no injection. 16:53 ENT: Exam is negative for acute changes, Mouth: no acute changes, Lips: normal, moist, Oral mucosa: normal, pink and intact, moist, Voice: no acute changes. 16:53 Neck: Exam negative for acute changes. 16:53 Chest/axilla: Inspection: no acute changes, Axilla: no acute changes, lymphadenopathy, is not appreciated, Breasts: abscess, not appreciated, cellulitis, is not appreciated, nipple discharge, is not appreciated, rash, is not appreciated, swelling, is not appreciated, tenderness, is not appreciated, Evert Monreal RN. 16:53 Cardiovascular: Exam negative for acute changes, Rate: normal, Rhythm: regular, Pulses: no pulse deficits are appreciated, Heart sounds: normal, normal S1and S2. 16:53 Respiratory: Exam negative for acute changes, respiratory distress, shortness of breath, Breath sounds: are clear throughout. 16:53 Abdomen/GI: Exam negative for acute changes, Inspection: abdomen appears normal, Palpation: abdomen is soft and non-tender, in all quadrants. 16:53 Back: Exam negative for acute changes. 16:53 : Small scab present to mons pubis area. No fluctuance, redness, tenderness, abscess or cellulitis present. Evert Monreal RN. 16:53 Neuro: Exam negative for acute changes, Orientation: is normal, Mentation: is normal, Motor: is normal, moves all fours. Vital Signs: 16:30 BP 133 / 80; Pulse 97; Resp 17; Temp 98.5; Pulse Ox 95% on R/A; Weight 58.06 kg; Height ll1 5 ft. 3 in. (160.02 cm); Pain 10/10; 17:25 BP 114 / 73 Supine; Pulse 88; Resp 16; Pulse Ox 96% on R/A; tp1 17:25 BP 112 / 74 Sitting; Pulse 96; Resp 16; Pulse Ox 99% on R/A; tp1 17:25 BP 122 / 81 Standing; Pulse 101; Resp 16; Pulse Ox 97% on R/A; tp1 18:00 BP 113 / 77; Pulse 77; Resp 16; Pulse Ox 99% on R/A; tp1 16:30 Body Mass Index 22.67 (58.06 kg, 160.02 cm) ll1 MDM: 16:23 Patient medically screened. pm1 16:33 ED course: PMPAware reviewed. Patient last tramadol prescription on 08/03/2022 for 12 pm1 tablets. 17:33 Data reviewed: vital signs. Data interpreted: Pulse oximetry: on room air is 95 %. pm1 Interpretation: normal. 18:34 ED course: Patient does not want to wait for the lab results. She just wants to go pm1 home. Patient states multiple ER visits at multiple different ERs have not been able to find out what is causing her problems since 2016. Instructed patient on return precautions. 08/17 16:53 Order name: CBC with Diff pm1 08/17 16:53 Order name: CMP pm1 08/17 16:53 Order name: Troponin High Sensitivity pm1 08/17 17:10 Order name: UDS; Complete Time: 18:24 pm1 08/17 17:20 Order name: Urine Dipstick-Ancillary; Complete Time: 17:21 EDIA 08/17 16:53 Order name: IV Saline Lock; Complete Time: 17:27 pm1 08/17 16:53 Order name: Urine Dipstick-Ancillary (obtain specimen); Complete Time: 17:27 pm1 08/17 16:53 Order name: EKG; Complete Time: 16:53 pm1 08/17 16:53 Order name: EKG - Nurse/Tech; Complete Time: 17:27 pm1 08/17 16:53 Order name: Orthostatic Blood Pressure; Complete Time: 17: pm1 EC: Rate is 84 beats/min. Rhythm is regular, Normal Sinus Rhythm with No ectopy. QRS Foley pm1 is Normal. NH interval is normal. QRS interval is normal. QT interval is normal. No Q waves. T waves are Normal. No ST changes noted. Clinical impression: Normal ECG. Administered Medications: 17: Drug: NS 0.9% 1000 ml Route: IV; Rate: 1000 ml; Site: right forearm; tp1 18:37 Follow up: IV Status: Completed infusion; IV Intake: 1000ml tp1 Disposition: 17:40 Co-signature as Attending Physician, Jacob Dick DO I was immediately available on-site ms3 in the Emergency Department for consultation in the care of the patient. Disposition Summary: 08/17/22 18:36 Discharge Ordered Location: Home pm1 Problem: new pm1 Symptoms: have improved pm1 Condition: Stable pm1 Diagnosis - Orthostatic hypotension pm1 Followup: pm1 - With: Emergency Department - When: As needed - Reason: Worsening of condition Followup: pm1 - With: Private Physician - When: 2 - 3 days - Reason: Recheck today's complaints, Continuance of care, Re-evaluation by your physician Discharge Instructions: - Discharge Summary Sheet pm1 - Orthostatic Hypotension pm1 Forms: - Medication Reconciliation Form pm1 - Thank You Letter pm1 - Antibiotic Education pm1 - Prescription Opioid Use pm1 Signatures: Dispatcher [employer] EDMS Dionte Naranjo NP LOCOMOTIVE CRANE OPERATOR pm1 Teri Goncalves RN RN ll1 Jacob Dick DO DO ms3 Alyssia Campo RN RN tp1
--- NOTE | 2022-08-17 18:37 | ER ---
Nurse's Notes [facility] Name: Joe Mullins Age: 46 yrs Sex: Female : 1975 Arrival Date: 08/17/2022 Time: 16:18 Bed 13 Private MD: Diagnosis: Orthostatic hypotension Presentation: 08/17 16:30 Chief complaint: Patient states: Pain all over again for 4 days. Here on 08-02 for ll1 similar reasons. "Hot lava is flowing through my veins." Cannot find new PCP. Coronavirus screen: Vaccine status: Patient reports being unvaccinated. Client denies travel out of the [place] in the last 14 days. At this time, the client does not indicate any symptoms associated with coronavirus-19. Ebola Screen: Patient denies travel to an Ebola-affected area in the 21 days before illness onset. Initial Sepsis Screen: Does the patient meet any 2 criteria? HR > 90 bpm. No. Patient's initial sepsis screen is negative. Does the patient have a suspected source of infection? No. Patient's initial sepsis screen is negative. Risk Assessment: Do you want to hurt yourself or someone else? Patient reports no desire to harm self or others. Onset of symptoms was August 13, 2022. 16:30 Method Of Arrival: Ambulatory ll1 16:30 Acuity: MIKE 4 ll1 Triage Assessment: 16:32 General: Appears uncomfortable, unkempt, Behavior is cooperative, restless. Pain: ll1 Complains of pain in generalized all over Pain currently is 10 out of 10 on a pain scale. Neuro: Reports "pain all over". Historical: - Allergies: 16:30 Diflucan; ll1 16:30 Iodinated Contrast Media - IV Dye; ll1 16:30 Levothyroxine Sodium; ll1 16:30 PENICILLINS; ll1 16:30 Zithromax; ll1 - PMHx: 16:30 Asthma; HEP C; ibs; Thyroid problem; GERD; ll1 - PSHx: 16:30 Cholecystectomy; patial hysterectomy; ll1 - Immunization history:: Client reports having NOT received the Covid vaccine. - Social history:: Smoking status: Patient reports the use of cigarette tobacco products, denies chronic smoking, but will smoke occasionally, Reported history of juuling and/or vaping. Screenin:12 Abuse screen: Denies threats or abuse. Nutritional screening: No deficits noted. vg1 Tuberculosis screening: No symptoms or risk factors identified. Fall Risk No fall in past 12 months (0 pts). No secondary diagnosis (0 pts). IV access (20 points). Ambulatory Aid- None/Bed Rest/Nurse Assist (0 pts). Gait- Normal/Bed Rest/Wheelchair (0 pts) Mental Status- Oriented to own ability (0 pts). Total Cruz Fall Scale indicates No Risk (0-24 pts). Assessment: 16:51 Reassessment: pt stated swollen CORDELIA breast and ABD pain; chaperoned Marcella GAS PLANT SPECIALIST during vg1 examination; breast did not appear to be swollen; upon palpation of ABD appears to be soft and non tender. Pt also stated 'has a boil' on pubis area, upon examination 'boil' appears to be 'healing' according to Marcella GAS PLANT SPECIALIST. General: Appears in no apparent distress. uncomfortable, Behavior is cooperative, anxious. Pain: Complains of pain in right breast, left breast, abdomen and pelvis Pain currently is 7 out of 10 on a pain scale. Neuro: Level of Consciousness is awake, alert, obeys commands, Oriented to person, place, time, situation. Cardiovascular: Patient's skin is warm and dry. Respiratory: Airway is patent Respiratory effort is even, unlabored. GI: Abdomen is flat, Abd is soft and non tender X 4 quads. Reports lower abdominal pain, upper abdominal pain. : No signs and/or symptoms were reported regarding the genitourinary system. EENT: No signs and/or symptoms were reported regarding the EENT system. Derm: Skin is pink, warm \\T\\ dry. Musculoskeletal: Circulation, motion, and sensation intact. 18:15 Reassessment: Patient appears in no apparent distress at this time. No changes from tp1 previously documented assessment. Patient and/or family updated on plan of care and expected duration. Pain level reassessed. Patient is alert, oriented x 3, equal unlabored respirations, skin warm/dry/pink. Vital Signs: 16:30 BP 133 / 80; Pulse 97; Resp 17; Temp 98.5; Pulse Ox 95% on R/A; Weight 58.06 kg; Height ll1 5 ft. 3 in. (160.02 cm); Pain 10/10; 17:25 BP 114 / 73 Supine; Pulse 88; Resp 16; Pulse Ox 96% on R/A; tp1 17:25 BP 112 / 74 Sitting; Pulse 96; Resp 16; Pulse Ox 99% on R/A; tp1 17:25 BP 122 / 81 Standing; Pulse 101; Resp 16; Pulse Ox 97% on R/A; tp1 18:00 BP 113 / 77; Pulse 77; Resp 16; Pulse Ox 99% on R/A; tp1 16:30 Body Mass Index 22.67 (58.06 kg, 160.02 cm) ll1 ED Course: 16:18 Patient arrived in ED. rg4 16:21 Dionte Naranjo NP is PHCP. pm1 16:21 Jacob Dick DO is Attending Physician. pm1 16:21 Melissa Cash, ALYSIA is Primary Nurse. vg1 16:30 Arm band placed on Patient placed in an exam room, on a stretcher. ll1 16:32 Triage completed. ll1 17:12 Patient has correct armband on for positive identification. Placed in gown. Bed in low vg1 position. Call light in reach. Side rails up X 1. 17:12 No provider procedures requiring assistance completed. vg1 17:27 Inserted saline lock: 20 gauge in right forearm, using aseptic technique. Blood tp1 collected. 18:44 IV discontinued, intact, bleeding controlled, No redness/swelling at site. Pressure tp1 dressing applied. Administered Medications: 17:27 Drug: NS 0.9% 1000 ml Route: IV; Rate: 1000 ml; Site: right forearm; tp1 18:37 Follow up: IV Status: Completed infusion; IV Intake: 1000ml tp1 Medication: 18:37 VIS not applicable for this client. tp1 Intake: 18:37 IV: 1000ml; Total: 1000ml. tp1 Outcome: 18:36 Discharge ordered by MD. pm1 18:44 Discharged to home ambulatory. tp1 18:44 Condition: good 18:44 Discharge instructions given to patient, Instructed on discharge instructions, follow up and referral plans. Demonstrated understanding of instructions, follow-up care. 18:44 Patient left the ED. tp1 Signatures: Dionte Naranjo NP GAS PLANT SPECIALIST pm1 Kalli Cash rg4 Melissa Cash RN RN 1 Teri Goncalves RN RN ll1 Alber, Alyssia, RN RN tp1
[2022-08-17 18:42] LABS: Absolute Lymphocytes (CBC) 2.7 K/uL (0.7-4.9); Hematocrit 40.8 % (36.0-45.0); Lymphocytes % 23.8 % (15.3-44.8); MCV 93.4 fL (80-100); MPV 11.6 fL (7.6-11.3); RBC Red Blood Cell Count 4.37 M/uL (3.86-4.86)
[2022-08-17 18:46] LABS: Albumin 3.5 g/dL (3.4-5.0); Bilirubin Total 0.3 mg/dL (0.2-1.0); Protein, Total 7.3 g/dL (6.4-8.2); Troponin High Sensitivity 4.3 pg/mL (<58.9)
[2022-08-17 18:49] VITALS: TEMP 98.5
[2022-08-17 18:52] VITALS: BP 113/77; O2SAT 99
--- NOTE | 2022-08-18 16:33 | EKG ---
Test Date: 2022-08-17 Test Time: 17:13:43 Land Conservation Specialist: TP MEASUREMENT RESULTS: Intervals: Rate: 84 NH: 186 QRSD: 74 QT: 396 QTc: 467 [place]: P: 80 NH: 186 QRS: 88 T: 70 INTERPRETIVE STATEMENTS: Normal sinus rhythm Normal ECG No previous ECG available for comparison Electronically Signed On 08-18-22 16:32:28 DONOR RECRUITMENT MANAGER by Evaristo Armenta
== END 2022-08-17 18:44 | disposition home or self-care (01) ==
LOC: ER 16:13
DX: I95.1 Orthostatic hypotension (principal); F17.210 Nicotine dependence, cigarettes, uncomplicated; Z88.0 Allergy status to penicillin; Z88.1 Allergy status to other antibiotic agents; Z88.3 Allergy status to other anti-infective agents; Z91.041 Radiographic dye allergy status
CPT/HCPCS: 93005; 85025; 36415; 81003; 84484; 80053; 80307; 96360; 99284; J7030

== ENCOUNTER 2022-09-27 16:18 | Emergency (ER) | payer OTHER ==
[2022-09-27 17:36] LABS: Urine Blood Negative (Negative); Urine Glucose Negative (Negative); Urine Protein Negative (Negative)
--- NOTE | 2022-09-27 17:50 | RAD REPORT ---
EXAM DESCRIPTION: CT - Stone Protocol - 09/27/2022 5:39 pm CLINICAL HISTORY: Abdominal pain. Right flank pain COMPARISON: December 2021 TECHNIQUE: Computed axial tomography of the abdomen pelvis was obtained without oral or IV contrast. Lack of IV and oral contrast limits evaluation of solid organs, appendix, bowel, and vessels. Mendes l reformatted images were obtained and reviewed. All CT scans are performed using dose optimization technique as appropriate and may include automated exposure control or mA/KV adjustment according to patient size. FINDINGS: A renal calculus is not seen. An ureteral calculus is not noted. A bladder calculus is not present. No hydronephrosis. Cholecystectomy Hysterectomy. No adnexal mass The liver, spleen, pancreas and adrenals appear grossly normal There is no evidence of diverticulitis. The appendix appears normal IMPRESSION: Negative for a genitourinary calculus
[2022-09-27 17:52] LABS: Absolute Lymphocytes (CBC) 2.5 K/uL (0.7-4.9); Hematocrit 44.2 % (36.0-45.0); Lymphocytes % 24.1 % (15.3-44.8); MCV 93.7 fL (80-100); MPV 10.9 fL (7.6-11.3); RBC Red Blood Cell Count 4.72 M/uL (3.86-4.86)
[2022-09-27 17:54] LABS: Urine Bacteria <20 /HPF (<20); Urine Mucus Slight /HPF (None Seen); Urine RBC <5 /HPF (None Seen)
[2022-09-27 17:59] LABS: Bilirubin Total 0.3 mg/dL (0.2-1.0); Potassium 4.1 mmol/L (3.5-5.1); Protein, Total 8.2 g/dL (6.4-8.2)
[2022-09-27] MEDS ORDERED: HYDROCODONE/APAP 7.5/325 MG TAB ONE (19:35)
[2022-09-27] MEDS ORDERED: NA CHLORIDE 0.9% 1,000 ML ONE (19:35)
--- NOTE | 2022-09-27 20:59 | ER ---
Nurse's Notes [facility] Name: Joe Mullins Age: 46 yrs Sex: Female : 1975 Arrival Date: 09/27/2022 Time: 16:23 Bed Treatment Private MD: Diagnosis: Person with feared health complaint in whom no diagnosis is made Presentation: 09/27 16:47 Chief complaint: Patient states: Patient is complaining of right flank pain, and is ap3 having difficulty urinating. she feels like she has an infection in her whole body that is spreading by her blood. she states "I have bubbles under my skin, and in my nose". Patient reports painful teeth. Patient reports headache. Blood in her breasts, that is making her breasts grow and burn. Coronavirus screen: At this time, the client does not indicate any symptoms associated with coronavirus-19. Ebola Screen: No symptoms or risks identified at this time. Risk Assessment: Do you want to hurt yourself or someone else? Patient reports no desire to harm self or others. Onset of symptoms is unknown. 16:47 Method Of Arrival: Ambulatory ap3 16:51 Initial Sepsis Screen: Does the patient meet any 2 criteria? No. Patient's initial ap3 sepsis screen is negative. Does the patient have a suspected source of infection? No. Patient's initial sepsis screen is negative. 17:00 Acuity: MIKE 3 ap3 Triage Assessment: 16:56 General: Appears in no apparent distress. Behavior is anxious. Pain: Complains of pain ap3 in right breast, left breast, pelvis, right leg and left leg. Neuro: Level of Consciousness is awake, alert, obeys commands, Oriented to person, place, time, situation. Cardiovascular: Patient's skin is warm and dry. Respiratory: Airway is patent Respiratory effort is even, unlabored. Historical: - Allergies: 16:49 Diflucan; ap3 16:49 Iodinated Contrast Media - IV Dye; ap3 16:49 Levothyroxine Sodium; ap3 16:49 PENICILLINS; ap3 16:49 Zithromax; ap3 - PMHx: 16:49 Asthma; GERD; HEP C; ibs; Thyroid problem; ap3 - PSHx: 16:49 Cholecystectomy; patial hysterectomy; ap3 - Immunization history:: Adult Immunizations. - Social history:: Smoking status: Patient reports the use of cigarette tobacco products, smokes one-half pack cigarettes per day. Screenin:56 [facility] ED Fall Risk Assessment (Adult) History of falling in the last 3 months, ap3 including since admission No falls in past 3 months (0 pts). Abuse screen: Denies threats or abuse. Nutritional screening: No deficits noted. Tuberculosis screening: No symptoms or risk factors identified. Vital Signs: 16:47 Pulse 117; Temp 98.8; Pulse Ox 99% ; ap3 16:57 BP 143 / 92; Weight 62.14 kg; Height 5 ft. 3 in. (160.02 cm); ap3 19:12 BP 125 / 94; Pulse 93; Resp 18; Pulse Ox 100% on R/A; oe 20:00 BP 119 / 88; Pulse 89; Resp 18; Pulse Ox 96% on R/A; oe 20:41 BP 119 / 88; Pulse 85; Resp 19; Pulse Ox 100% on R/A; kd3 16:57 Body Mass Index 24.27 (62.14 kg, 160.02 cm) ap3 ED Course: 16:23 Patient arrived in ED. rg4 16:56 Arm band placed on right wrist. ap3 16:59 Ines Dawson FNP-C is PHCP. kb 16:59 Madhav Rivera MD is Attending Physician. kb 17:00 Triage completed. ap3 17:40 CT Stone Protocol In Process Unspecified. EDMS 19:30 Jinny Santana, ALYSIA is Primary Nurse. kd3 21:22 Patient has correct armband on for positive identification. kd3 21:22 No provider procedures requiring assistance completed. IV discontinued, intact, kd3 bleeding controlled, No redness/swelling at site. Pressure dressing applied. Administered Medications: 19:40 Drug: NS 0.9% 1000 ml Route: IV; Rate: 1000 ml; Site: left forearm; kd3 20:40 Follow up: IV Status: Completed infusion; IV Intake: 1000ml kd3 19:40 Drug: Emerado (HYDROcodone-acetaminophen) (7.5 mg-325 mg) 1 tabs Route: PO; kd3 20:40 Follow up: Response: No adverse reaction; Pain is decreased kd3 Medication: 21:22 VIS not applicable for this client. kd3 Intake: 20:40 IV: 1000ml; Total: 1000ml. kd3 Outcome: 20:59 Discharge ordered by MD. pal 21:22 Discharged to home ambulatory. kd3 21:22 Condition: stable 21:22 Discharge instructions given to patient, Instructed on discharge instructions, follow up and referral plans. Demonstrated understanding of instructions, follow-up care. 21:22 Patient left the ED. kd3 Signatures: Dispatcher [employer] EDMS Ines Dawson, CONCRETE SAW OPERATOR-C CONCRETE SAW OPERATOR-Kalli Queen rg4 David Rodríguez Amanda, RN RN ap3 Jinny Santana RN RN kd3 Corrections: (The following items were deleted from the chart) 16:56 16:47 Chief complaint: Patient states: she feels like she has an infection in her whole ap3 body that is spreading by her blood. she states "I have bubbles under my skin, and in my nose". Patient reports painful teeth. Patient reports headache. Blood in her breasts, that is making her breasts grow and burn. ap3
--- NOTE | 2022-09-27 20:59 | EDPHYS ---
Physician Documentation [facility] Name: Joe Mullins Age: 46 yrs Sex: Female : 1975 Arrival Date: 09/27/2022 Time: 16:23 Bed Treatment Private MD: YIFAN Physician Madhav Rivera HPI: 09/28 00:11 This 46 yrs old Female presents to ER via Ambulatory with complaints of Infection. kb 00:11 The patient complains of pain in the right flank. The pain does not radiate. Onset: The kb symptoms/episode began/occurred 3 day(s) ago. Modifying factors: The symptoms are alleviated by nothing. the symptoms are aggravated by palpation/percussion. Associated signs and symptoms: Pertinent positives: difficulty urinating. Severity of pain: At its worst the pain was moderate in the emergency department the pain is unchanged. The patient has not experienced similar symptoms in the past. The patient has not recently seen a physician. Pt states she has had blood and pus coming out of her nipples with enlarged breasts that are burning for 4 months. States she has had teeth pain, cough, body pain to the upper torso that has been ongoing. Reports right flank pain and difficulty urinating for a few days. Pt states she has an infection in her body that is coming from her breasts. Has been seen by [facility] for this and had a mammogram that was normal. Pt reports she cannot take oral antibiotics because they cause her stomach to bleed. States she had a dose of IV antibiotics last time she was here and she felt it running through her body causing the infection to decrease, but needed more for it to take it away completely. . Historical: - Allergies: 09/27 16:49 Diflucan; ap3 16:49 Iodinated Contrast Media - IV Dye; ap3 16:49 Levothyroxine Sodium; ap3 16:49 PENICILLINS; ap3 16:49 Zithromax; ap3 - PMHx: 16:49 Asthma; GERD; HEP C; ibs; Thyroid problem; ap3 - PSHx: 16:49 Cholecystectomy; patial hysterectomy; ap3 - Immunization history:: Adult Immunizations. - Social history:: Smoking status: Patient reports the use of cigarette tobacco products, smokes one-half pack cigarettes per day. ROS: 09/28 00:08 Constitutional: Negative for fever, chills, and weight loss. kb ENT: Positive for Teeth pain Respiratory: Positive for cough. : Positive for flank pain, difficulty urinating. Skin: Positive for "bubbles come up on skin in different areas at different time," "I have blood and pus coming out of my nipples since April. I had a mammogram and they said it was normal.". All other systems are negative. Exam: 00:08 Constitutional: This is a well developed, well nourished patient who is awake, alert, kb and in no acute distress. Head/Face: Normocephalic, atraumatic. ENT: Moist Mucous membranes Cardiovascular: Regular rate and rhythm with a normal S1 and S2. No gallops, murmurs, or rubs. No pulse deficits. Respiratory: Respirations even and unlabored. No increased work of breathing. Talking in full sentences Abdomen/GI: Soft, non-tender. No distention Skin: Warm, dry with normal turgor. Normal color. MS/ Extremity: Pulses equal, no cyanosis. Neurovascular intact. Full, normal range of motion. Neuro: Awake and alert, GCS 15, oriented to person, place, time, and situation. Moves all extremities. Normal gait. Psych: Awake, alert, with orientation to person, place and time. Behavior, mood, and affect are within normal limits. 00:08 Back: CVA tenderness, that is moderate, is noted on the right. Vital Signs: 09/27 16:47 Pulse 117; Temp 98.8; Pulse Ox 99% ; ap3 16:57 BP 143 / 92; Weight 62.14 kg; Height 5 ft. 3 in. (160.02 cm); ap3 19:12 BP 125 / 94; Pulse 93; Resp 18; Pulse Ox 100% on R/A; oe 20:00 BP 119 / 88; Pulse 89; Resp 18; Pulse Ox 96% on R/A; oe 20:41 BP 119 / 88; Pulse 85; Resp 19; Pulse Ox 100% on R/A; kd3 16:57 Body Mass Index 24.27 (62.14 kg, 160.02 cm) ap3 MDM: 17:00 Patient medically screened. kb 09/28 00:01 Differential diagnosis: viral Infection, bacterial infection, UTI. Data reviewed: vital kb signs, nurses notes. Data interpreted: Pulse oximetry: on room air is 100 %. Interpretation: normal. Counseling: I had a detailed discussion with the patient and/or guardian regarding: the historical points, exam findings, and any diagnostic results supporting the discharge/admit diagnosis, lab results, radiology results, the need for outpatient follow up, a family practitioner, an OB/Gyne specialist, to return to the emergency department if symptoms worsen or persist or if there are any questions or concerns that arise at home. 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 kb 00:10 ED course: Breasts examined, no abnormal findings, no discharge. kb 09/27 17:10 Order name: CBC with Diff; Complete Time: 18:37 kb 09/27 17:10 Order name: CMP; Complete Time: 18:37 kb 09/27 17:10 Order name: Lipase; Complete Time: 18:37 kb 09/27 17:10 Order name: Urine Microscopic Only; Complete Time: 18:37 kb 09/27 17:10 Order name: CT Stone Protocol; Complete Time: 18:37 kb 09/27 17:36 Order name: Urine Dipstick-Ancillary; Complete Time: 18:37 EDMS 09/27 17:10 Order name: IV Saline Lock; Complete Time: 18:21 kb 09/27 17:10 Order name: Labs collected and sent; Complete Time: 18:21 kb 09/27 17:10 Order name: Urine Dipstick-Ancillary (obtain specimen); Complete Time: 18:21 kb Administered Medications: 09/27 19:40 Drug: NS 0.9% 1000 ml Route: IV; Rate: 1000 ml; Site: left forearm; kd3 20:40 Follow up: IV Status: Completed infusion; IV Intake: 1000ml kd3 19:40 Drug: [place] (HYDROcodone-acetaminophen) (7.5 mg-325 mg) 1 tabs Route: PO; kd3 20:40 Follow up: Response: No adverse reaction; Pain is decreased kd3 Disposition Summary: 09/27/22 20:59 Discharge Ordered Location: Home kb Condition: Stable kb Diagnosis - Person with feared health complaint in whom no diagnosis is made kb Followup: kb - With: Emergency Department - When: As needed - Reason: Worsening of condition Followup: kb - With: Private Physician - When: 2 - 3 days - Reason: Recheck today's complaints, Continuance of care, Re-evaluation by your physician Discharge Instructions: - Discharge Summary Sheet kb Forms: - Medication Reconciliation Form kb - Thank You Letter kb - Antibiotic Education kb - Prescription Opioid Use kb Signatures: Dispatcher [employer] Ines Mcdonald, Anna Molina RN RN ap3 Jinny Santana RN RN kd3
[2022-09-27 21:36] VITALS: TEMP 98.8
[2022-09-27 21:39] VITALS: BP 119/88
[2022-09-27 21:40] VITALS: O2SAT 100
== END 2022-09-27 21:22 | disposition home or self-care (01) ==
LOC: ER 16:18
DX: Z71.1 Person with feared health complaint in whom no diagnosis is made (principal)
CPT/HCPCS: 85025; 36415; 83690; 80053; 76377; 74176; 96360; 99283; J7030; 81003; 81015

== ENCOUNTER 2022-10-27 11:11 | Emergency (ER) | payer OTHER ==
[2022-10-27 12:05] LABS: Urine Blood Negative (Negative); Urine Glucose Negative (Negative); Urine Protein Negative (Negative)
[2022-10-27 12:22] LABS: Barbiturates NEGATIVE (NEGATIVE); Benzodiazepines NEGATIVE (NEGATIVE); Cocaine NEGATIVE (NEGATIVE); METHAMPHETAM POSITIVE (NEGATIVE); Methadone NEGATIVE (NEGATIVE); Opiates NEGATIVE (NEGATIVE); Phencyclidine NEGATIVE (NEGATIVE); THC Cannibis POSITIVE (NEGATIVE)
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
[2022-10-27 13:17] VITALS: BP 158/99; TEMP 98.3; O2SAT 98
== END 2022-10-27 13:07 | disposition home or self-care (01) ==
LOC: ER 11:11
DX: F22 Delusional disorders (principal); T43.625A Adverse effect of amphetamines, initial encounter; F17.210 Nicotine dependence, cigarettes, uncomplicated
CPT/HCPCS: 80307; 81003; 99281

== ENCOUNTER → 2023-10-03 | Emergency (ER) | payer OTHER ==
[~2023-10-03] MED LIST: CYCLOBENZAPRINE 10 MG TAB ONE; HYDROCODONE/APAP 7.5/325 MG TAB ONE
--- NOTE | 2023-10-03 21:30 | RAD REPORT ---
EXAM DESCRIPTION: RAD - Shoulder Right 2 View - 10/03/2023 8:26 pm CLINICAL HISTORY: Right shoulder pain FINDINGS: Oblique lucency is present within the scapula near the glenoid. It is uncertain if this in dicates a fracture or prominent trabecula. If clinically indicated CT could be obtained No dislocation
--- NOTE | 2023-10-03 22:20 | RAD REPORT ---
EXAM DESCRIPTION: CT - Shoulder Right Wo Cont - 10/03/2023 9:57 pm CLINICAL HISTORY: Right shoulder pain COMPARISON: X-ray October 03, 2023 TECHNIQUE: Computed axial tomography right shoulder obtained. Coronal and sagittal reconstruction pe rformed All CT scans are performed using dose optimization technique as appropriate and may include automated exposure control or mA/KV adjustment according to patient size. FINDINGS: No fracture seen. No dislocation. No significant joint effusion. No subcutaneous contusion IMPRESSION: No fracture visualized
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
[2023-10-04 04:02] VITALS: BP 122/93; TEMP 98.8; O2SAT 99
== END ==
LOC: ER 20:01
DX: M25.511 Pain in right shoulder (principal); Z88.0 Allergy status to penicillin; Z88.1 Allergy status to other antibiotic agents; Z88.3 Allergy status to other anti-infective agents; Z91.041 Radiographic dye allergy status
CPT/HCPCS: 73200; 99283

== ENCOUNTER 2024-01-31 18:44 | Emergency (ER) | payer OTHER ==
[2024-01-31 19:46] LABS: Absolute Basophils 0.1 K/uL (0-0.5); Absolute Eosinophils 0.1 K/uL (0-0.5); Absolute Lymphocytes (CBC) 2.3 K/uL (0.7-4.9); Absolute Monocytes 0.6 K/uL (0.1-1.3); Absolute Neutrophil 5.8 K/uL (1.8-8.0); Basophils % 1.1 % (0-1.3); Eosinophils % 1.5 % (0-4.4); Hematocrit 42.2 % (36.0-45.0); Hemoglobin 14.4 g/dL (12.0-15.0); Lymphocytes % 26.1 % (15.3-44.8); MCHC 34.1 g/dL (32.0-36.0); MCV 93.9 fL (80-100); MPV 11.3 fL (7.6-11.3); Monocytes % 6.2 % (3.3-12.3); Neutrophils % 65.1 % (41.7-73.7); Platelets 182 thou/uL (152-406); Red Cell Distribution Width 12.8 % (12.1-15.2)
[2024-01-31 19:50] LABS: PT Prothrombin Time 11.4 SECONDS (9.5-12.5); PTT, Activated Partial Thromb 32.2 SECONDS (24.3-36.9); Protime INR 1.04
[2024-01-31 19:59] LABS: Barbiturates NEGATIVE (NEGATIVE); Benzodiazepines NEGATIVE (NEGATIVE); Cocaine NEGATIVE (NEGATIVE); METHAMPHETAM NEGATIVE (NEGATIVE); Methadone NEGATIVE (NEGATIVE); Opiates NEGATIVE (NEGATIVE); Phencyclidine NEGATIVE (NEGATIVE); THC Cannibis NEGATIVE (NEGATIVE)
[2024-01-31 20:05] LABS: ALT/SGPT 35 U/L (13-56); AST/SGOT 14 U/L (15-37); Albumin 3.6 g/dL (3.4-5.0); Albumin/Globulin Ratio 0.9 (1.1-1.8); Alkaline Phosphatase 73 U/L (45-117); Anion Gap 6.8 mEq/L (5.0-15.0); BUN Blood Urea Nitrogen 12 mg/dL (7-18); Bicarbonate 25 mEq/L (21-32); Bilirubin Direct < 0.2 mg/dL (0-0.2); Bilirubin Total 0.2 mg/dL (0.2-1.0); Globulin 4.1 g/dL (2.3-3.5); Glomerular Filtration Rate 99 ml/min (=/>90); Glucose Level 120 mg/dL (74-106); Potassium 3.8 mEq/L (3.5-5.1); Protein, Total 7.7 g/dL (6.4-8.2); Sodium Level 137 mEq/L (136-145)
--- NOTE | 2024-01-31 20:18 | RAD REPORT ---
EXAM DESCRIPTION: CT - Head Brain Wo Cont - 01/31/2024 7:24 pm CLINICAL HISTORY: HEADACHE COMPARISON: No comparisons TECHNIQUE: Noncontrast head CT images were obtained without IV contrast. Multiplanar reformats were generated and reviewed. All CT scans are performed using dose optimization technique as appropriate and may include automated exposure control or mA/KV adjustment according to patient size. FINDINGS: No intracranial hemorrhage, mass, or edema. Midline structures are unremarkable. Normal ventricular caliber for age. Mendoza-white matter differentiation is preserved, without evidence of acute infarct. No abnormal extra- axial fluid collections. Mastoid air cells and visualized portions of the paranasal sinuses are clear. No acute bony findings. IMPRESSION: No evidence of an acute intracranial process.
--- NOTE | 2024-01-31 20:27 | ER ---
Nurse's Notes [facility] Name: Joe Mullins Age: 48 yrs Sex: Female : 1975 Arrival Date: 01/31/2024 Time: 18:44 Bed 16 Private MD: Diagnosis: Headache Presentation: 01/30 19:00 Chief complaint: Patient states: Having parasites coming out of her arms and head onset cm10 7 days ago. Pt states that she is currently doing a parasite cleanse. Pt also reports a headache X4 years. Coronavirus screen: Vaccine status: Patient reports being unvaccinated. Client denies travel out of the [place] in the last 14 days. Ebola Screen: Patient denies travel to an Ebola-affected area in the 21 days before illness onset. No symptoms or risks identified at this time. Initial Sepsis Screen: Does the patient meet any 2 criteria? HR > 90 bpm. No. Patient's initial sepsis screen is negative. Does the patient have a suspected source of infection? No. Patient's initial sepsis screen is negative. Risk Assessment: Do you want to hurt yourself or someone else? Patient reports no desire to harm self or others. Onset of symptoms was January 31, 2024. 19:00 Method Of Arrival: Ambulatory cm10 19:00 Acuity: MIKE 3 cm10 Triage Assessment: 19:01 General: Appears in no apparent distress. Behavior is crying. Neuro: No deficits noted. cm10 Level of Consciousness is awake, alert, obeys commands, Oriented to person, place, time, situation. 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 - Infectious Disease History:: Denies. - Social history:: Smoking status: Patient denies any tobacco usage or history of. Screenin:21 [facility] ED Fall Risk Assessment (Adult) History of falling in the last 3 months, cp4 including since admission No falls in past 3 months (0 pts) Confusion or Disorientation No (0 pts) Intoxicated or Sedated No (0 pts) Impaired Gait No (0 pts) Mobility Assist Device Used No (0 pt) Altered Elimination No (0 pt) Score/Fall Risk Level 0 - 2 = Low Risk Oriented to surroundings, Maintained a safe environment, Provided non-skid footwear, Used ambulatory aids as needed (educated on \T\ assisted with). Abuse screen: Denies threats or abuse. Nutritional screening: No deficits noted. Tuberculosis screening: No symptoms or risk factors identified. Assessment: 19:21 General: Appears distressed, Behavior is cooperative, appropriate for age, anxious. cp4 Pain: Denies pain. Vital Signs: 19:00 BP 156 / 93; Pulse 102; Resp 18; Temp 97.4; Pulse Ox 96% on R/A; Weight 57.61 kg; cm10 Height 5 ft. 3 in. ; Pain 7/10; 20:42 BP 135 / 84; Pulse 91; Resp 18; Pulse Ox 100% ; cp4 19:00 Body Mass Index 22.50 (57.61 kg, 160.02 cm) cm10 19:00 Pain Scale: Adult cm10 ED Course: 18:48 Patient arrived in ED. mr 18:51 Jacob Dick DO is Attending Physician. ms3 19:01 Triage completed. cm10 19:02 Arm band placed on Patient placed in waiting room. cm10 19:20 Denisa Philippe is Primary Nurse. cp4 19:21 Bed in low position. Call light in reach. Side rails up X2. cp4 19:26 CT Head Brain wo Cont In Process Unspecified. EDMS 19:39 Initial lab(s) drawn, by va, sent to lab. Urine collected: clean catch specimen, clear. cp4 Inserted saline lock: 22 gauge in left antecubital area, using aseptic technique. Blood collected. 19:51 Attending Physician role handed off by Jacob Dick DO ms3 19:51 Uvaldo Sarabia MD is Attending Physician. ms3 20:43 No provider procedures requiring assistance completed. intact, bleeding controlled, No cp4 redness/swelling at site. Pressure dressing applied. 20:44 Provided Education on: headaches. cp4 Administered Medications: 19:50 Drug: Droperidol IVP 2.5 mg IVP once Route: IVP; Site: left antecubital; cp4 20:45 Follow up: Response: No adverse reaction cp4 Medication: 19:21 VIS not applicable for this client. cp4 Outcome: 20:27 Discharge ordered by . rt 20:43 Discharged to home ambulatory, cp4 20:43 Condition: stable 20:43 Discharge instructions given to patient, Instructed on discharge instructions, follow up and referral plans. Demonstrated understanding of instructions, follow-up care, 20:44 Patient left the ED. cp4 Signatures: Dispatcher [employer] EDMS Daniella Yan, Reg Reg mr MayelinJacob, DO DO ms3 Uvaldo Sarabia MD MD rt Faiza Noriega RN RN cm10 Denisa Philippe cp4
--- NOTE | 2024-01-31 20:27 | EDPHYS ---
Physician Documentation [facility] Name: Joe Mullins Age: 48 yrs Sex: Female : 1975 Arrival Date: 01/31/2024 Time: 18:44 Bed 16 Private MD: ED Physician Uvaldo Sarabia HPI: 01/30 18:59 This 48 yrs old Female presents to ER via Unassigned with complaints of Head pressure. ms3 18:59 48-year-old female with past medical history of hypothyroidism presents to the [facility] emergency department for head pressure. Patient states has been taking parasite herbal medications as parasites are affecting her body. Patient states she has been tested by physicians for everything and it all came back normal. Patient endorses severe head pressure. Patient denies any alleviating factors. 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 - Infectious Disease History:: Denies. - Social history:: Smoking status: Patient denies any tobacco usage or history of. ROS: 18:59 Constitutional: Negative for fever, and chills. Neck: Negative for injury, pain, and ms3 swelling, Cardiovascular: Negative for chest pain, and palpitations. Respiratory: Negative for shortness of breath, cough, wheezing, and pleuritic chest pain, Abdomen/GI: Negative for abdominal pain, nausea, vomiting, diarrhea, and constipation, 18:59 Neuro: Positive for headache, Exam: 18:59 Constitutional: This is a well developed, well nourished patient who is awake, alert, ms3 and in no acute distress. Head/Face: Normocephalic, atraumatic. Neck: Trachea midline, no cervical lymphadenopathy. Supple, full range of motion without nuchal rigidity, or vertebral point tenderness. No Meningismus. Chest/axilla: Normal chest wall appearance and motion. Nontender with no deformity. Cardiovascular: Regular rate and rhythm with a normal S1 and S2. No gallops, murmurs, or rubs. Normal PMI, no JVD. No pulse deficits. Respiratory: Lungs have equal breath sounds bilaterally, clear to auscultation and percussion. No rales, rhonchi or wheezes noted. No increased work of breathing, no retractions or nasal flaring. Abdomen/GI: Soft, non-tender, with normal bowel sounds. No distension or tympany. No guarding or rebound. No evidence of tenderness throughout. Skin: Warm, dry with normal turgor. Normal color with no rashes, no lesions, and no evidence of cellulitis. 18:59 Psych: Behavior/mood is anxious, Affect is animated, Patient has no thoughts/intents to harm self or others. Judgement / Insight is impaired. Delusions/hallucinations are present and described as Believes she has "pockets of parasites" in her hands and face. 19:37 ECG was reviewed by the Attending Physician. ms3 Vital Signs: 19:00 BP 156 / 93; Pulse 102; Resp 18; Temp 97.4; Pulse Ox 96% on R/A; Weight 57.61 kg; cm10 Height 5 ft. 3 in. ; Pain 7/10; 20:42 BP 135 / 84; Pulse 91; Resp 18; Pulse Ox 100% ; cp4 19:00 Body Mass Index 22.50 (57.61 kg, 160.02 cm) cm10 19:00 Pain Scale: Adult cm10 MDM: 18:59 Differential diagnosis: cluster headache, migraine, neoplasm, Methamphetamine abuse. ms3 19:01 Patient medically screened. ms3 19:50 Transition of care: After a detail discussion of the patient's case, care is ms3 transferred to Uvaldo Sarabia MD. 20:27 Data reviewed: vital signs, nurses notes, lab test result(s), radiologic studies. I rt considered the following discharge prescriptions or medication management in the emergency department Medications were administered in the Emergency Department. See MAR. Independent interpretation of the following test(s) in the Emergency Department CT Scan: My interpretation is No intracranial hemorrhage seen on my interpretation of CT scan images. Counseling: I had a detailed discussion with the patient and/or guardian regarding the historical points, exam findings, and any diagnostic results supporting the discharge/admit diagnosis, lab results, radiology results, the need for outpatient follow up. Response to treatment: the patient's symptoms have markedly improved after treatment. 01/30 18:59 Order name: Acetaminophen; Complete Time: 20:19 ms3 01/30 18:59 Order name: BMP; Complete Time: 20:19 ms3 01/30 18:59 Order name: CBC with Diff; Complete Time: 19:50 ms3 01/30 18:59 Order name: Ethanol; Complete Time: 20:19 ms3 01/30 18:59 Order name: Hepatic Function; Complete Time: 20:19 ms3 01/30 18:59 Order name: Test, Urine; Complete Time: 19:48 ms3 01/30 18:59 Order name: Protime (+inr); Complete Time: 19:50 ms3 01/30 18:59 Order name: Ptt, Activated; Complete Time: 19:50 ms3 01/30 18:59 Order name: Salicylate; Complete Time: 20:20 ms3 01/30 18:59 Order name: Urine Drug Screen; Complete Time: 20:19 ms3 01/30 18:59 Order name: CT Head Brain wo Cont; Complete Time: 20:19 ms3 01/30 18:59 Order name: EKG - Nurse/Tech; Complete Time: 19:39 ms3 01/30 18:59 Order name: IV Saline Lock; Complete Time: 19:22 ms3 01/30 18:59 Order name: Labs collected and sent; Complete Time: 19:39 ms3 01/30 18:59 Order name: O2 Per Protocol; Complete Time: 19:22 ms3 01/30 18:59 Order name: O2 Sat Monitoring; Complete Time: 19:22 ms3 01/30 18:59 Order name: Suicide Screening ([place]); Complete Time: 19:39 ms3 EC:37 Rate is 88 beats/min. Rhythm is regular. QRS [place] is Normal. MA interval is normal. QRS ms3 interval is normal. Clinical impression: Normal ECG. Interpreted by me. Reviewed by me. Administered Medications: 19:50 Drug: Droperidol IVP 2.5 mg IVP once Route: IVP; Site: left antecubital; cp4 20:45 Follow up: Response: No adverse reaction cp4 Disposition Summary: 01/31/24 20:27 Discharge Ordered Notes: Location: Home rt Problem: new rt Symptoms: have improved rt Condition: Stable rt Diagnosis - Headache rt Followup: rt - With: Private Physician - When: 5 - 6 days - Reason: Discharge Instructions: - Discharge Summary Sheet rt - General Headache Without Cause rt Forms: - Medication Reconciliation Form rt - Antibiotic Education rt - Prescription Opioid Use rt - Patient Portal Instructions rt - Leadership Thank You Letter rt Signatures: Dispatcher [employer] EDMS DickJacob colunga, DO ms3 Uvaldo Sarabia MD MD rt Faiza Noriega RN RN cm10 Denisa Philippe cp4 Corrections: (The following items were deleted from the chart) 18:59 18:59 ACETAMINOPHEN+C.LAB.BRZ ordered. EDMS EDMS 18:59 18:59 BASIC METABOLIC PANEL+C.LAB.BRZ ordered. EDMS EDMS 18:59 18:59 CBC+H.LAB.BRZ ordered. EDMS EDMS 18:59 18:59 ETHANOL+C.LAB.BRZ ordered. EDMS EDMS 18:59 18:59 HEPATIC FUNCTION+C.LAB.BRZ ordered. EDMS EDMS 18:59 18:59 Test, Urine+UC.LAB.BRZ ordered. EDMS EDMS 18:59 18:59 PROTIME (+INR)+COAG.LAB.BRZ ordered. EDMS EDMS 18:59 18:59 PTT, ACTIVATED+COAG.LAB.BRZ ordered. EDMS EDMS 18:59 18:59 SALICYLATE+C.LAB.BRZ ordered. EDMS EDMS 18:59 18:59 URINE DRUG SCREEN+UC.LAB.BRZ ordered. EDMS EDMS 18:59 18:59 Head Brain Wo Cont+CT.RAD.BRZ ordered. EDMS EDMS
[2024-01-31 21:07] VITALS: BP 135/84; TEMP 97.4; O2SAT 100
--- NOTE | 2024-02-04 13:30 | EKG ---
Test Date: 2024-01-31 Test Time: 19:30:54 Firer Boiler: STACI MEASUREMENT RESULTS: Intervals: Rate: 88 NV: 172 QRSD: 80 QT: 384 QTc: 464 [place]: P: 74 NV: 172 QRS: 76 T: 81 INTERPRETIVE STATEMENTS: Normal sinus rhythm Normal ECG Compared to ECG 08/17/2022 17:13:43 No significant changes Electronically Signed On 02-04-24 13:19:55 CDT by Evaristo Armenta
== END 2024-01-31 20:44 | disposition home or self-care (01) ==
LOC: ER 18:44
DX: R51.9 Headache, unspecified (principal); Z88.0 Allergy status to penicillin; Z88.1 Allergy status to other antibiotic agents; Z88.3 Allergy status to other anti-infective agents; Z88.8 Allergy status to other drugs, medicaments and biological substances; Z91.041 Radiographic dye allergy status
CPT/HCPCS: 36415; 70450; 80048; 80076; 80143; 80179; 80307; 81025; 82077; 85025; 85610; 85730; 93005; 96374; 99284